=== PATIENT | female | born 1940 | race Caucasian/White ===

== ENCOUNTER 2016-04-16 08:51 | Outpatient (RCR) | payer MEDICARE, OTHER ==
--- OUTSIDE RECORDS SUMMARY | 2016-01-23 14:54 | XMS REPORT | Continuity of Care Document ---
Author Author [facility] Organization [facility] Address Unknown Phone Unavailable Care Team Providers Care Career Coordinator Name Role Phone GRACIELA MCGUIRE DO PCP Insurance Providers Payer Name Policy Number Subscriber Name Relationship [employer] Medicare [id number] Sharmila Silva 18 Self / Same As Patient [employer] [id number] Sharmila Silva 18 Self / Same As Patient Advance Directives Directive Response Recorded Date/Time Advance Directives No 07/29/13 10:30pm Health Care Power of Gymnastic Coach No 07/29/13 10:30pm Organ Donor No 07/29/13 10:30pm Problems No known problems or medical conditions. Medications Medication Dose Route Sig Days/Qty Instructions Order Date Discontinued Date Status Lisinopril 20 Mg PO DAILY 05/29/11 Active Levothyroxine Sodium (Levothroid) 75 Mcg PO DAILY 05/29/11 Active Metformin HCl (Glucophage) 1 Each PO TWICE A DAY WITH MEALS 05/29/11 Active Vitamin E 400 Unit PO DAILY 05/29/11 Active Acetaminophen/Hydrocodone Bitart 1 - 2 Ea PO Q4HR PRN 06/05/1110/22 Discontinued Omeprazole 40 Mg PO DAILY 06/05/11 10/22/12 Discontinued Cholecalciferol 1,000 Unit GT 10/22/12 Active Iron &Iron Asp Gly/Fa/Mv,Min38 1 Each PO 10/22/12 Active Dicyclomine Hcl 10 Mg PO 10/22/12 Active Apixaban 5 Mg PO TWICE A DAY 60 Qty 07/31/13 Active Diltiazem HCl 180 Mg PO DAILY 30 Qty 07/31/13 Active Social History Social History Problem Response Recorded Date/Time Alcohol Use Denies Use 07/29/2013 10:30pm Recreational Drug Use No 07/29/2013 10:30pm Recent Foreign Travel No 07/29/2013 10:30pm Recent Infectious Disease Exposure No 07/29/2013 10:30pm Hospitalization with Isolation Denies 07/31/2013 1:47pm Sexually Transmitted Disease No 07/29/2013 10:30pm HIV/AIDS No 07/29/2013 10:30pm Hospital Discharge Instructions No hospital discharge instructions. Plan of Care No plan of care. Functional Status No functional status results. Allergies, Adverse Reactions, Alerts Allergen Type Severity Reaction Status Last Updated indomethacin sodium Allergy Unknown HEAD ACHE, NIGHTMARES Active 07/29/13 indomethacin ([id number]) Allergy Unknown HEAD ACHE, NIGHTMARES Active 03/03 Immunizations No immunization records. Vital Signs No known vital signs results. Results No known relevant diagnostic tests, laboratory data and/or discharge summary. Procedures Procedure Status Date Provider(s) 48 hour Holter monitoring completed 07/20/14 ZORAN MCGUIRE 48 hour Holter monitoring completed 07/20/14 ZORAN MCGUIRE Encounters Encounter Location Date/Time Discharged Recurring Via [facility] 07/19/14 9:59am
[2016-01-23 15:29] LABS: BASOPHILS % (AUTO) 1 % (0-10); EOSINOPHILS # (AUTO) 0.4 10^3/uL (0.0-0.3); EOSINOPHILS % (AUTO) 7 % (0-10); LYMPHOCYTES # (AUTO) 1.6 X 10^3 (1.0-4.0); LYMPHOCYTES % (AUTO) 31 % (12-44); MEAN CORPUSCULAR HEMOGLOBIN 28 PG (25-34); MEAN CORPUSCULAR HGB CONC 33 G/DL (32-36); MEAN CORPUSCULAR VOLUME 87 FL (80-99); MEAN PLATELET VOLUME 10.6 FL (7.4-10.4); MONOCYTES # (AUTO) 0.4 X 10^3 (0.0-1.0); MONOCYTES % (AUTO) 7 % (0-12); NEUTROPHILS # (AUTO) 2.8 X 10^3 (1.8-7.8); NEUTROPHILS % (AUTO) 54 % (42-75); PLATELET COUNT 213 10^3/uL (130-400); RED BLOOD COUNT 4.03 10^6/uL (4.35-5.85); RED CELL DISTRIBUTION WIDTH 17.2 % (10.0-14.5); WHITE BLOOD COUNT 5.2 10^3/uL (4.3-11.0)
[2016-01-23 15:54] LABS: CALCIUM 9.1 MG/DL (8.5-10.1); CREATININE SERUM 1.04 MG/DL (0.60-1.30); MAGNESIUM 2.1 MG/DL (1.8-2.4); POTASSIUM 4.7 MMOL/L (3.6-5.0)
[2016-01-30 11:07] LABS: BASOPHILS # (AUTO) 0.1 10^3/uL (0.0-0.1); BASOPHILS % (AUTO) 2 % (0-10); EOSINOPHILS # (AUTO) 0.1 10^3/uL (0.0-0.3); EOSINOPHILS % (AUTO) 3 % (0-10); LYMPHOCYTES # (AUTO) 1.1 X 10^3 (1.0-4.0); LYMPHOCYTES % (AUTO) 28 % (12-44); MEAN CORPUSCULAR HEMOGLOBIN 29 PG (25-34); MEAN CORPUSCULAR HGB CONC 33 G/DL (32-36); MEAN CORPUSCULAR VOLUME 88 FL (80-99); MONOCYTES # (AUTO) 0.6 X 10^3 (0.0-1.0); MONOCYTES % (AUTO) 15 % (0-12); NEUTROPHILS % (AUTO) 52 % (42-75); PLATELET COUNT 140 10^3/uL (130-400); RED BLOOD COUNT 3.77 10^6/uL (4.35-5.85); RED CELL DISTRIBUTION WIDTH 18.6 % (10.0-14.5); WHITE BLOOD COUNT 3.8 10^3/uL (4.3-11.0)
[2016-01-30 11:28] LABS: ALANINE AMINOTRANSFERASE 15 U/L (0-55); ALBUMIN 3.8 G/DL (3.2-4.5); ANION GAP 10 MMOL/L (5-14); ASPARTATE AMINO TRANSFERASE 16 U/L (5-34); BILIRUBIN,TOTAL 0.5 MG/DL (0.1-1.0); BLOOD UREA NITROGEN 14 MG/DL (7-18); BUN/CREATININE RATIO 16; CARBON DIOXIDE 20 MMOL/L (21-32); CHLORIDE 107 MMOL/L (98-107); CREATININE SERUM 0.87 MG/DL (0.60-1.30); GFR ESTIMATED > 60; GLUCOSE 120 MG/DL (70-105); MAGNESIUM 2.1 MG/DL (1.8-2.4); POTASSIUM 3.8 MMOL/L (3.6-5.0); SODIUM 137 MMOL/L (135-145); TOTAL PROTEIN 6.6 G/DL (6.4-8.2)
[2016-01-30 11:41] LABS: BILIRUBIN,URINE NEGATIVE (NEGATIVE); KETONES,URINE NEGATIVE (NEGATIVE); LEUKOCYTE ESTERASE ,URINE 3+ (NEGATIVE); NITRITE,URINE NEGATIVE (NEGATIVE); PH,URINE 5 (5-9); PROTEIN,URINE 1+ (NEGATIVE); UROBILINOGEN,URINE NORMAL (NORMAL)
[2016-02-06 10:28] LABS: BASOPHILS % (AUTO) 1 % (0-10); EOSINOPHILS # (AUTO) 0.3 10^3/uL (0.0-0.3); EOSINOPHILS % (AUTO) 6 % (0-10); LYMPHOCYTES # (AUTO) 1.1 X 10^3 (1.0-4.0); LYMPHOCYTES % (AUTO) 21 % (12-44); MEAN CORPUSCULAR HEMOGLOBIN 29 PG (25-34); MEAN CORPUSCULAR HGB CONC 33 G/DL (32-36); MEAN CORPUSCULAR VOLUME 87 FL (80-99); MEAN PLATELET VOLUME 10.4 FL (7.4-10.4); MONOCYTES # (AUTO) 0.5 X 10^3 (0.0-1.0); MONOCYTES % (AUTO) 10 % (0-12); NEUTROPHILS # (AUTO) 3.4 X 10^3 (1.8-7.8); NEUTROPHILS % (AUTO) 63 % (42-75); PLATELET COUNT 196 10^3/uL (130-400); RED BLOOD COUNT 3.89 10^6/uL (4.35-5.85); RED CELL DISTRIBUTION WIDTH 18.6 % (10.0-14.5); WHITE BLOOD COUNT 5.4 10^3/uL (4.3-11.0)
[2016-02-06 11:14] LABS: CALCIUM 8.9 MG/DL (8.5-10.1); CREATININE SERUM 0.96 MG/DL (0.60-1.30); MAGNESIUM 2.1 MG/DL (1.8-2.4); POTASSIUM 3.9 MMOL/L (3.6-5.0)
[2016-02-20 13:13] LABS: BASOPHILS # (AUTO) 0.1 10^3/uL (0.0-0.1); BASOPHILS % (AUTO) 1 % (0-10); EOSINOPHILS # (AUTO) 0.2 10^3/uL (0.0-0.3); EOSINOPHILS % (AUTO) 3 % (0-10); LYMPHOCYTES # (AUTO) 1.6 X 10^3 (1.0-4.0); LYMPHOCYTES % (AUTO) 25 % (12-44); MEAN CORPUSCULAR HEMOGLOBIN 29 PG (25-34); MEAN CORPUSCULAR HGB CONC 34 G/DL (32-36); MEAN CORPUSCULAR VOLUME 86 FL (80-99); MEAN PLATELET VOLUME 9.7 FL (7.4-10.4); MONOCYTES # (AUTO) 0.8 X 10^3 (0.0-1.0); MONOCYTES % (AUTO) 12 % (0-12); NEUTROPHILS # (AUTO) 3.8 X 10^3 (1.8-7.8); NEUTROPHILS % (AUTO) 60 % (42-75); PLATELET COUNT 265 10^3/uL (130-400); RED BLOOD COUNT 4.02 10^6/uL (4.35-5.85); RED CELL DISTRIBUTION WIDTH 20.4 % (10.0-14.5); WHITE BLOOD COUNT 6.4 10^3/uL (4.3-11.0)
[2016-02-20 13:36] LABS: ALANINE AMINOTRANSFERASE 22 U/L (0-55); ALBUMIN 3.6 G/DL (3.2-4.5); ANION GAP 5 MMOL/L (5-14); ASPARTATE AMINO TRANSFERASE 25 U/L (5-34); BILIRUBIN,TOTAL 0.3 MG/DL (0.1-1.0); BLOOD UREA NITROGEN 14 MG/DL (7-18); BUN/CREATININE RATIO 16; CALCIUM 8.6 MG/DL (8.5-10.1); CARBON DIOXIDE 24 MMOL/L (21-32); CHLORIDE 107 MMOL/L (98-107); CREATININE SERUM 0.86 MG/DL (0.60-1.30); GFR ESTIMATED > 60; GLUCOSE 127 MG/DL (70-105); POTASSIUM 3.8 MMOL/L (3.6-5.0); SODIUM 136 MMOL/L (135-145); TOTAL PROTEIN 6.6 G/DL (6.4-8.2)
[2016-02-20 14:11] LABS: KETONES,URINE 1+ (NEGATIVE); LEUKOCYTE ESTERASE ,URINE 3+ (NEGATIVE); NITRITE,URINE NEGATIVE (NEGATIVE); PH,URINE 6 (5-9); PROTEIN,URINE 2+ (NEGATIVE); UROBILINOGEN,URINE 1 MG/DL (NORMAL)
[2016-02-20 14:19] LABS: BILIRUBIN,URINE 1+ (NEGATIVE)
[2016-02-28 14:55] LABS: BASOPHILS % (AUTO) 1 % (0-10); EOSINOPHILS # (AUTO) 0.1 10^3/uL (0.0-0.3); EOSINOPHILS % (AUTO) 2 % (0-10); LYMPHOCYTES # (AUTO) 1.1 X 10^3 (1.0-4.0); LYMPHOCYTES % (AUTO) 19 % (12-44); MEAN CORPUSCULAR HEMOGLOBIN 29 PG (25-34); MEAN CORPUSCULAR HGB CONC 33 G/DL (32-36); MEAN CORPUSCULAR VOLUME 89 FL (80-99); MEAN PLATELET VOLUME 9.9 FL (7.4-10.4); MONOCYTES # (AUTO) 0.3 X 10^3 (0.0-1.0); MONOCYTES % (AUTO) 5 % (0-12); NEUTROPHILS # (AUTO) 4.1 X 10^3 (1.8-7.8); NEUTROPHILS % (AUTO) 73 % (42-75); PLATELET COUNT 148 10^3/uL (130-400); RED BLOOD COUNT 3.77 10^6/uL (4.35-5.85); RED CELL DISTRIBUTION WIDTH 18.8 % (10.0-14.5); WHITE BLOOD COUNT 5.6 10^3/uL (4.3-11.0)
[2016-02-28 15:10] LABS: BILIRUBIN,URINE NEGATIVE (NEGATIVE); KETONES,URINE NEGATIVE (NEGATIVE); LEUKOCYTE ESTERASE ,URINE 3+ (NEGATIVE); NITRITE,URINE NEGATIVE (NEGATIVE); PH,URINE 6 (5-9); PROTEIN,URINE 2+ (NEGATIVE); UROBILINOGEN,URINE NORMAL (NORMAL)
[2016-02-28 15:29] LABS: ANION GAP 9 MMOL/L (5-14); BLOOD UREA NITROGEN 11 MG/DL (7-18); BUN/CREATININE RATIO 14; CARBON DIOXIDE 24 MMOL/L (21-32); CHLORIDE 104 MMOL/L (98-107); CREATININE SERUM 0.81 MG/DL (0.60-1.30); GFR ESTIMATED > 60; GLUCOSE 150 MG/DL (70-105); POTASSIUM 4.1 MMOL/L (3.6-5.0); SODIUM 137 MMOL/L (135-145)
[2016-02-28 15:31] LABS: WBC,URINE 25-50 /HPF
[2016-03-05 09:15] LABS: BASOPHILS # (AUTO) 0.1 10^3/uL (0.0-0.1); BASOPHILS % (AUTO) 2 % (0-10); EOSINOPHILS # (AUTO) 0.2 10^3/uL (0.0-0.3); EOSINOPHILS % (AUTO) 5 % (0-10); LYMPHOCYTES # (AUTO) 1.1 X 10^3 (1.0-4.0); LYMPHOCYTES % (AUTO) 33 % (12-44); MEAN CORPUSCULAR HEMOGLOBIN 31 PG (25-34); MEAN CORPUSCULAR HGB CONC 34 G/DL (32-36); MEAN CORPUSCULAR VOLUME 91 FL (80-99); MEAN PLATELET VOLUME 9.2 FL (7.4-10.4); MONOCYTES # (AUTO) 0.7 X 10^3 (0.0-1.0); MONOCYTES % (AUTO) 20 % (0-12); NEUTROPHILS # (AUTO) 1.4 X 10^3 (1.8-7.8); NEUTROPHILS % (AUTO) 41 % (42-75); PLATELET COUNT 193 10^3/uL (130-400); RED BLOOD COUNT 3.49 10^6/uL (4.35-5.85); RED CELL DISTRIBUTION WIDTH 19.6 % (10.0-14.5); WHITE BLOOD COUNT 3.4 10^3/uL (4.3-11.0)
[2016-03-05 09:41] LABS: PROTEIN/CREATININE RATIO 0.35
[2016-03-05 09:50] LABS: ALBUMIN 3.8 G/DL (3.2-4.5); BILIRUBIN,TOTAL 0.3 MG/DL (0.1-1.0); CALCIUM 9.1 MG/DL (8.5-10.1); CREATININE SERUM 1.04 MG/DL (0.60-1.30); POTASSIUM 3.8 MMOL/L (3.6-5.0); TOTAL PROTEIN 6.6 G/DL (6.4-8.2)
[2016-03-12 11:39] LABS: BASOPHILS # (AUTO) 0.1 10^3/uL (0.0-0.1); BASOPHILS % (AUTO) 1 % (0-10); EOSINOPHILS # (AUTO) 0.2 10^3/uL (0.0-0.3); EOSINOPHILS % (AUTO) 4 % (0-10); LYMPHOCYTES # (AUTO) 1.5 X 10^3 (1.0-4.0); LYMPHOCYTES % (AUTO) 31 % (12-44); MEAN CORPUSCULAR HEMOGLOBIN 30 PG (25-34); MEAN CORPUSCULAR HGB CONC 32 G/DL (32-36); MEAN CORPUSCULAR VOLUME 94 FL (80-99); MEAN PLATELET VOLUME 9.6 FL (7.4-10.4); MONOCYTES # (AUTO) 0.7 X 10^3 (0.0-1.0); MONOCYTES % (AUTO) 15 % (0-12); NEUTROPHILS # (AUTO) 2.4 X 10^3 (1.8-7.8); NEUTROPHILS % (AUTO) 49 % (42-75); PLATELET COUNT 294 10^3/uL (130-400); RED BLOOD COUNT 3.61 10^6/uL (4.35-5.85); RED CELL DISTRIBUTION WIDTH 20.3 % (10.0-14.5); WHITE BLOOD COUNT 4.8 10^3/uL (4.3-11.0)
[2016-03-12 12:16] LABS: CALCIUM 9.5 MG/DL (8.5-10.1); CREATININE SERUM 1.02 MG/DL (0.60-1.30); MAGNESIUM 2.2 MG/DL (1.8-2.4); POTASSIUM 4.3 MMOL/L (3.6-5.0)
[2016-03-19 13:07] LABS: BASOPHILS # (AUTO) 0.1 10^3/uL (0.0-0.1); BASOPHILS % (AUTO) 1 % (0-10); EOSINOPHILS # (AUTO) 0.1 10^3/uL (0.0-0.3); EOSINOPHILS % (AUTO) 2 % (0-10); LYMPHOCYTES # (AUTO) 1.7 X 10^3 (1.0-4.0); LYMPHOCYTES % (AUTO) 26 % (12-44); MEAN CORPUSCULAR HEMOGLOBIN 31 PG (25-34); MEAN CORPUSCULAR HGB CONC 32 G/DL (32-36); MEAN CORPUSCULAR VOLUME 96 FL (80-99); MEAN PLATELET VOLUME 10.4 FL (7.4-10.4); MONOCYTES # (AUTO) 0.6 X 10^3 (0.0-1.0); MONOCYTES % (AUTO) 10 % (0-12); NEUTROPHILS # (AUTO) 4.1 X 10^3 (1.8-7.8); NEUTROPHILS % (AUTO) 62 % (42-75); PLATELET COUNT 187 10^3/uL (130-400); RED BLOOD COUNT 3.57 10^6/uL (4.35-5.85); WHITE BLOOD COUNT 6.6 10^3/uL (4.3-11.0)
[2016-03-19 13:35] LABS: ALANINE AMINOTRANSFERASE 20 U/L (0-55); ALBUMIN 3.8 G/DL (3.2-4.5); ANION GAP 9 MMOL/L (5-14); ASPARTATE AMINO TRANSFERASE 25 U/L (5-34); BILIRUBIN,TOTAL 0.4 MG/DL (0.1-1.0); BLOOD UREA NITROGEN 16 MG/DL (7-18); BUN/CREATININE RATIO 19; CALCIUM 9.1 MG/DL (8.5-10.1); CARBON DIOXIDE 25 MMOL/L (21-32); CHLORIDE 104 MMOL/L (98-107); CREATININE SERUM 0.84 MG/DL (0.60-1.30); GFR ESTIMATED > 60; GLUCOSE 120 MG/DL (70-105); MAGNESIUM 2.1 MG/DL (1.8-2.4); POTASSIUM 3.9 MMOL/L (3.6-5.0); SODIUM 138 MMOL/L (135-145); TOTAL PROTEIN 6.6 G/DL (6.4-8.2)
[2016-03-26 12:24] LABS: BASOPHILS % (AUTO) 1 % (0-10); EOSINOPHILS # (AUTO) 0.2 10^3/uL (0.0-0.3); EOSINOPHILS % (AUTO) 4 % (0-10); LYMPHOCYTES # (AUTO) 1.5 X 10^3 (1.0-4.0); LYMPHOCYTES % (AUTO) 32 % (12-44); MEAN CORPUSCULAR HEMOGLOBIN 31 PG (25-34); MEAN CORPUSCULAR HGB CONC 32 G/DL (32-36); MEAN CORPUSCULAR VOLUME 97 FL (80-99); MEAN PLATELET VOLUME 10.7 FL (7.4-10.4); MONOCYTES # (AUTO) 0.4 X 10^3 (0.0-1.0); MONOCYTES % (AUTO) 8 % (0-12); NEUTROPHILS # (AUTO) 2.6 X 10^3 (1.8-7.8); NEUTROPHILS % (AUTO) 55 % (42-75); PLATELET COUNT 205 10^3/uL (130-400); RED BLOOD COUNT 3.51 10^6/uL (4.35-5.85); RED CELL DISTRIBUTION WIDTH 18.5 % (10.0-14.5); WHITE BLOOD COUNT 4.8 10^3/uL (4.3-11.0)
[2016-03-26 12:52] LABS: ANION GAP 7 MMOL/L (5-14); BLOOD UREA NITROGEN 21 MG/DL (7-18); BUN/CREATININE RATIO 25; CALCIUM 9.2 MG/DL (8.5-10.1); CARBON DIOXIDE 27 MMOL/L (21-32); CHLORIDE 105 MMOL/L (98-107); CREATININE SERUM 0.85 MG/DL (0.60-1.30); GFR ESTIMATED > 60; GLUCOSE 132 MG/DL (70-105); POTASSIUM 4.3 MMOL/L (3.6-5.0); SODIUM 139 MMOL/L (135-145)
[2016-04-02 11:13] LABS: BASOPHILS % (AUTO) 1 % (0-10); EOSINOPHILS # (AUTO) 0.2 10^3/uL (0.0-0.3); EOSINOPHILS % (AUTO) 4 % (0-10); LYMPHOCYTES # (AUTO) 1.4 X 10^3 (1.0-4.0); LYMPHOCYTES % (AUTO) 29 % (12-44); MEAN CORPUSCULAR HEMOGLOBIN 32 PG (25-34); MEAN CORPUSCULAR HGB CONC 33 G/DL (32-36); MEAN CORPUSCULAR VOLUME 98 FL (80-99); MEAN PLATELET VOLUME 10.5 FL (7.4-10.4); MONOCYTES # (AUTO) 0.5 X 10^3 (0.0-1.0); MONOCYTES % (AUTO) 11 % (0-12); NEUTROPHILS # (AUTO) 2.7 X 10^3 (1.8-7.8); NEUTROPHILS % (AUTO) 55 % (42-75); PLATELET COUNT 200 10^3/uL (130-400); RED BLOOD COUNT 3.57 10^6/uL (4.35-5.85); RED CELL DISTRIBUTION WIDTH 18.4 % (10.0-14.5); WHITE BLOOD COUNT 4.8 10^3/uL (4.3-11.0)
[2016-04-02 11:35] LABS: ALANINE AMINOTRANSFERASE 13 U/L (0-55); ANION GAP 11 MMOL/L (5-14); ASPARTATE AMINO TRANSFERASE 22 U/L (5-34); BILIRUBIN,TOTAL 0.3 MG/DL (0.1-1.0); BLOOD UREA NITROGEN 18 MG/DL (7-18); BUN/CREATININE RATIO 21; CALCIUM 8.9 MG/DL (8.5-10.1); CARBON DIOXIDE 21 MMOL/L (21-32); CHLORIDE 106 MMOL/L (98-107); CREATININE SERUM 0.86 MG/DL (0.60-1.30); GFR ESTIMATED > 60; GLUCOSE 166 MG/DL (70-105); POTASSIUM 3.6 MMOL/L (3.6-5.0); SODIUM 138 MMOL/L (135-145)
[2016-04-09 14:38] LABS: BASOPHILS % (AUTO) 1 % (0-10); EOSINOPHILS # (AUTO) 0.2 10^3/uL (0.0-0.3); EOSINOPHILS % (AUTO) 4 % (0-10); LYMPHOCYTES # (AUTO) 1.7 X 10^3 (1.0-4.0); LYMPHOCYTES % (AUTO) 32 % (12-44); MEAN CORPUSCULAR HEMOGLOBIN 33 PG (25-34); MEAN CORPUSCULAR HGB CONC 33 G/DL (32-36); MEAN CORPUSCULAR VOLUME 99 FL (80-99); MONOCYTES # (AUTO) 0.7 X 10^3 (0.0-1.0); MONOCYTES % (AUTO) 12 % (0-12); NEUTROPHILS # (AUTO) 2.9 X 10^3 (1.8-7.8); NEUTROPHILS % (AUTO) 52 % (42-75); PLATELET COUNT 263 10^3/uL (130-400); RED BLOOD COUNT 3.44 10^6/uL (4.35-5.85); RED CELL DISTRIBUTION WIDTH 17.2 % (10.0-14.5); WHITE BLOOD COUNT 5.5 10^3/uL (4.3-11.0)
[2016-04-09 15:44] LABS: ANION GAP 7 MMOL/L (5-14); BLOOD UREA NITROGEN 16 MG/DL (7-18); BUN/CREATININE RATIO 19; CALCIUM 9.2 MG/DL (8.5-10.1); CARBON DIOXIDE 31 MMOL/L (21-32); CHLORIDE 103 MMOL/L (98-107); CREATININE SERUM 0.86 MG/DL (0.60-1.30); GFR ESTIMATED > 60; GLUCOSE 117 MG/DL (70-105); MAGNESIUM 2.1 MG/DL (1.8-2.4); POTASSIUM 4.6 MMOL/L (3.6-5.0); SODIUM 141 MMOL/L (135-145)
[~2016-04-16] VITALS: Ht 165.1 cm; Wt 83.5 kg
[~2016-04-16 08:51] MED LIST: APIX5TAB2 PO; ASPI-983 PO; ASPI-999 PO; BEVACIZUMAB INJECTION 400 MG in NS (IVPB) CANCER CENTER 100 ML IV SCH; BEVACIZUMAB IV SCH; BISA-65 PO; CHOL10002 GT; CHOL2000 PO; D5W 500 ML IV (CANCER CTR) 500 ML IV SCH; DICY10CA12 PO; DILT60TA PO; DLT60T PO; E400C PO; FERR-74 PO; FERR-84 PO; FERR159T2 PO; FLUOROURACIL 600 MG in SYRINGE-IVPB 1 SYRINGE IV SCH; FLUT16SP22 NS; FLUT9.9S NS; FOSAPREPITANT 150 MG/NS 150 MG IVPB (CANCER CTR) IV PRN; FURO-124 PO; HYDR-3583 PO; IRON1TAB94 PO; LEUCOVORIN CALCIUM 400 MG in D5W 250 ML IVPB (CANCER CTR) 250 ML IV SCH; LEUCOVORIN CALCIUM 600 MG in D5W 250 ML IVPB (CANCER CTR) 250 ML IV SCH; LEVO75TA6 PO; LISI20TA PO; LORA0.5T PO; LORA10TA7 PO; LORA1TAB PO; LVT.025T PO; MAGN400T6 PO; METO-272 PO; METR500T21 PO; MTF500T PO; NF-MAG64T PO; NS IV 1000 ML (CANCER CTR) 1,000 ML ONE; NS IV SCH; OMEP40CA36 PO; ONDA4TAB11 PO; OXALIPLATIN 100 MG, OXALIPLATIN (GENERIC) 40 MG in D5W 250 ML IVPB (CANCER CTR) 250 ML IV SCH; OXYC-471 PO; PALONOSETRON 0.25 MG, DEXAMETHASONE 10 MG/NS 50 ML IVPB IV PRN; PANT40TA3 PO; POTA99TA17 PO; SIMV10TA3 PO; TRAM50TA2 PO; UBID100C44 PO; VITA400C58 PO
[2016-04-16 09:17] LABS: BASOPHILS % (AUTO) 0 % (0-10); EOSINOPHILS # (AUTO) 0.2 10^3/uL (0.0-0.3); EOSINOPHILS % (AUTO) 4 % (0-10); LYMPHOCYTES # (AUTO) 1.4 X 10^3 (1.0-4.0); LYMPHOCYTES % (AUTO) 23 % (12-44); MEAN CORPUSCULAR HEMOGLOBIN 33 PG (25-34); MEAN CORPUSCULAR HGB CONC 33 G/DL (32-36); MEAN CORPUSCULAR VOLUME 99 FL (80-99); MEAN PLATELET VOLUME 10.4 FL (7.4-10.4); MONOCYTES # (AUTO) 0.6 X 10^3 (0.0-1.0); MONOCYTES % (AUTO) 11 % (0-12); NEUTROPHILS # (AUTO) 3.6 X 10^3 (1.8-7.8); NEUTROPHILS % (AUTO) 62 % (42-75); PLATELET COUNT 148 10^3/uL (130-400); RED BLOOD COUNT 3.46 10^6/uL (4.35-5.85); WHITE BLOOD COUNT 5.8 10^3/uL (4.3-11.0)
[2016-04-16 09:41] LABS: ALANINE AMINOTRANSFERASE 13 U/L (0-55); ALBUMIN 3.9 G/DL (3.2-4.5); ANION GAP 9 MMOL/L (5-14); ASPARTATE AMINO TRANSFERASE 20 U/L (5-34); BILIRUBIN,TOTAL 0.3 MG/DL (0.1-1.0); BLOOD UREA NITROGEN 17 MG/DL (7-18); BUN/CREATININE RATIO 19; CALCIUM 8.8 MG/DL (8.5-10.1); CARBON DIOXIDE 24 MMOL/L (21-32); CHLORIDE 104 MMOL/L (98-107); GFR ESTIMATED > 60; GLUCOSE 163 MG/DL (70-105); POTASSIUM 3.5 MMOL/L (3.6-5.0); SODIUM 137 MMOL/L (135-145); TOTAL PROTEIN 6.8 G/DL (6.4-8.2)
[2016-04-16 10:27] LABS: PROTEIN/CREATININE RATIO 0.08
== END 2016-04-22 | disposition home or self-care (01) ==
LOC: ONC 08:51
PROVIDERS: ATTEND Internal Medicine Hematology & Oncology
DX: Z51.11 Encounter for antineoplastic chemotherapy (principal); C18.4 Malignant neoplasm of transverse colon; C77.1 Secondary and unspecified malignant neoplasm of intrathoracic lymph nodes; C77.3 Secondary and unspecified malignant neoplasm of axilla and upper limb lymph nodes; E03.9 Hypothyroidism, unspecified; R80.9 Proteinuria, unspecified; R82.90 Unspecified abnormal findings in urine; A04.7 Enterocolitis due to Clostridium difficile; K12.30 Oral mucositis (ulcerative), unspecified; Z79.899 Other long term (current) drug therapy
CPT/HCPCS: 36415; 36591; 80048; 80053; 81000; 81002; 82378; 82570; 83735; 84156; 85025; 87077; 87088; 87186; 87324; 87493; 96360; 96361; 96367; 96368; 96375; 96411; 96413; 96521; 99213

== ENCOUNTER → 2016-06-18 | Outpatient (CLI) | payer MEDICARE, OTHER ==
[~2016-06-18] MED LIST changes: +BARIUM SUSPENSION 2.1% (VANILLA SILQ) 450 ML PO ONE; -BEVACIZUMAB INJECTION 400 MG in NS (IVPB) CANCER CENTER 100 ML IV SCH; -BEVACIZUMAB IV SCH; +CATHETER FLUSH 10 ML SYR IV PRN; -D5W 500 ML IV (CANCER CTR) 500 ML IV SCH; -FLUOROURACIL 600 MG in SYRINGE-IVPB 1 SYRINGE IV SCH; -FOSAPREPITANT 150 MG/NS 150 MG IVPB (CANCER CTR) IV PRN; +IOHEXOL 350 MG/ML 100 ML (OMNIPAQUE 350) VIAL IV ONE; -LEUCOVORIN CALCIUM 400 MG in D5W 250 ML IVPB (CANCER CTR) 250 ML IV SCH; -LEUCOVORIN CALCIUM 600 MG in D5W 250 ML IVPB (CANCER CTR) 250 ML IV SCH; +NS 100 ML (IVPB) BAG IV ONE; -NS IV 1000 ML (CANCER CTR) 1,000 ML ONE; -NS IV SCH; -OXALIPLATIN 100 MG, OXALIPLATIN (GENERIC) 40 MG in D5W 250 ML IVPB (CANCER CTR) 250 ML IV SCH; -PALONOSETRON 0.25 MG, DEXAMETHASONE 10 MG/NS 50 ML IVPB IV PRN
--- OUTSIDE RECORDS SUMMARY | 2016-06-18 09:34 | XMS REPORT | Continuity of Care Document ---
Author Author [facility] Organization [facility] Address Unknown Phone Unavailable Care Team Providers Care Vice Chairman Name Role Phone GRACIELA MCGUIRE DO PCP Insurance Providers Payer Name Policy Number Subscriber Name Relationship [employer]ps Medicare [id number] Sharmila Silva 18 Self / Same As Patient [employer] [id number] Sharmila Silva 18 Self / Same As Patient Advance Directives Directive Response Recorded Date/Time Advance Directives No 07/29/13 10:30pm Health Care Power of Merchant Mariner No 07/29/13 10:30pm Organ Donor No 07/29/13 [...] Unknown HEAD ACHE, NIGHTMARES Active 07/29/13 indomethacin ([id number]) Allergy Unknown HEAD ACHE, NIGHTMARES Active 03/03 Immunizations No immunization records. Vital Signs No known vital signs results. Results No known relevant diagnostic tests, laboratory data and/or discharge summary. Procedures Procedure Status Date Provider(s) 48 hour Holter monitoring completed 07/20/14 ZORAN MCGUIRE 48 hour Holter monitoring completed 07/20/14 ZORAN MCGUIRE Encounters Encounter Location Date/Time Discharged Recurring Via [facility] 07/19/14 9:59am
--- NOTE | 2016-06-18 12:25 | Diagnostic Imaging Report ---
PROCEDURE: CT chest, abdomen, and pelvis with contrast. TECHNIQUE: Multiple contiguous axial images were obtained through the chest, abdomen, and pelvis after the administration of intravenous contrast. INDICATION: Colon cancer. Study compared with abdominal/ pelvic CT 10/29/2015. No previous chest for direct comparison. CT chest: No lung mass or suspicious pulmonary nodule is present. There is no axillary, hilar, or mediastinal lymphadenopathy. There is a small hiatal hernia with no pleural or pericardial effusion. No acute soft tissue or osseous chest wall disease. Central catheter has its tip at the lower SVC. The aorta is patent and nonaneurysmal. CT abdomen/ pelvis: Previous features of small bowel obstruction have resolved in the interim. On the previous CT there was a focal area of abnormal induration of the mesentery just posterior to an anastomosis in the right lower quadrant. That localized density has resolved. No liver mass. The gallbladder absent. No pathological biliary ductal dilatation. The pancreas unremarkable. Nonfocal spleen is within normal limits of size. The adrenals are negative. The kidneys are unobstructed. Previous pelvic free fluid has resolved. There is some noninflamed diverticulosis at the sigmoid. There is no abdominal, pelvic, mesenteric, or retroperitoneal lymphadenopathy. The osseous structures unremarkable. IMPRESSION: There were no findings of metastatic disease within the chest, abdomen, or pelvis; and there is no acute pathology or adverse change. We note interval resolution of previous small bowel obstruction, resolution of previous pelvic free fluid, and resolution of previous perianastomotic zone of soft tissue induration of the mesentery. No adverse development or acute finding. Dictated by: Dictated on workstation # [id number]
== END ==
LOC: RAD 09:30
PROVIDERS: ATTEND Nurse Practitioner Adult Health
DX: C18.4 Malignant neoplasm of transverse colon (principal); C77.8 Secondary and unspecified malignant neoplasm of lymph nodes of multiple regions
CPT/HCPCS: 71260; 74177

== ENCOUNTER 2016-06-25 09:23 | Outpatient (RCR) | payer MEDICARE, OTHER ==
--- OUTSIDE RECORDS SUMMARY | 2016-04-23 13:04 | XMS REPORT | Continuity of Care Document ---
Author Author [facility] Organization [facility] Address Unknown Phone Unavailable Care Team Providers Care Commercial Print Salesman Name Role Phone GRACIELA MCGUIRE DO PCP Insurance Providers Payer Name Policy Number Subscriber Name Relationship [employer]ps [employer] [id number] Sharmila Silva 18 Self / Same As Patient [employer] [id number] Sharmila Silva 18 Self / Same As Patient Advance Directives Directive Response Recorded Date/Time Advance Directives No 07/29/13 10:30pm Health Care Power of Scheduler Conveyor No 07/29/13 10:30pm Organ Donor No 07/29/13 [...] Unknown HEAD ACHE, NIGHTMARES Active 07/29/13 indomethacin ([id number]) Allergy Unknown HEAD ACHE, NIGHTMARES Active 03/03 Immunizations No immunization records. Vital Signs No known vital signs results. Results No known relevant diagnostic tests, laboratory data and/or discharge summary. Procedures Procedure Status Date Provider(s) 48 hour Holter monitoring completed 07/20/14 ZORAN MCGUIRE 48 hour Holter monitoring completed 07/20/14 ZORAN MCGUIRE Encounters Encounter Location Date/Time Discharged Recurring Via [facility] 07/19/14 9:59am
[2016-04-23 13:24] LABS: BASOPHILS % (AUTO) 1 % (0-10); EOSINOPHILS # (AUTO) 0.1 10^3/uL (0.0-0.3); EOSINOPHILS % (AUTO) 3 % (0-10); LYMPHOCYTES # (AUTO) 1.5 X 10^3 (1.0-4.0); LYMPHOCYTES % (AUTO) 32 % (12-44); MEAN CORPUSCULAR HEMOGLOBIN 32 PG (25-34); MEAN CORPUSCULAR HGB CONC 32 G/DL (32-36); MEAN CORPUSCULAR VOLUME 100 FL (80-99); MEAN PLATELET VOLUME 10.3 FL (7.4-10.4); MONOCYTES # (AUTO) 0.5 X 10^3 (0.0-1.0); MONOCYTES % (AUTO) 12 % (0-12); NEUTROPHILS # (AUTO) 2.4 X 10^3 (1.8-7.8); NEUTROPHILS % (AUTO) 52 % (42-75); PLATELET COUNT 186 10^3/uL (130-400); RED BLOOD COUNT 3.51 10^6/uL (4.35-5.85); RED CELL DISTRIBUTION WIDTH 15.9 % (10.0-14.5); WHITE BLOOD COUNT 4.6 10^3/uL (4.3-11.0)
[2016-04-23 13:46] LABS: CALCIUM 9.5 MG/DL (8.5-10.1); CREATININE SERUM 0.93 MG/DL (0.60-1.30); MAGNESIUM 1.9 MG/DL (1.8-2.4); POTASSIUM 4.4 MMOL/L (3.6-5.0)
[2016-04-30 13:05] LABS: BASOPHILS % (AUTO) 1 % (0-10); EOSINOPHILS # (AUTO) 0.2 10^3/uL (0.0-0.3); EOSINOPHILS % (AUTO) 4 % (0-10); LYMPHOCYTES # (AUTO) 1.5 X 10^3 (1.0-4.0); LYMPHOCYTES % (AUTO) 28 % (12-44); MEAN CORPUSCULAR HEMOGLOBIN 32 PG (25-34); MEAN CORPUSCULAR HGB CONC 33 G/DL (32-36); MEAN CORPUSCULAR VOLUME 100 FL (80-99); MEAN PLATELET VOLUME 10.1 FL (7.4-10.4); MONOCYTES # (AUTO) 0.6 X 10^3 (0.0-1.0); MONOCYTES % (AUTO) 13 % (0-12); NEUTROPHILS # (AUTO) 2.8 X 10^3 (1.8-7.8); NEUTROPHILS % (AUTO) 55 % (42-75); PLATELET COUNT 150 10^3/uL (130-400); RED BLOOD COUNT 3.43 10^6/uL (4.35-5.85); RED CELL DISTRIBUTION WIDTH 15.8 % (10.0-14.5); WHITE BLOOD COUNT 5.1 10^3/uL (4.3-11.0)
[2016-04-30 13:30] LABS: ALANINE AMINOTRANSFERASE 14 U/L (0-55); ANION GAP 10 MMOL/L (5-14); ASPARTATE AMINO TRANSFERASE 20 U/L (5-34); BILIRUBIN,TOTAL 0.4 MG/DL (0.1-1.0); BLOOD UREA NITROGEN 19 MG/DL (7-18); BUN/CREATININE RATIO 22; CALCIUM 9.1 MG/DL (8.5-10.1); CARBON DIOXIDE 24 MMOL/L (21-32); CHLORIDE 104 MMOL/L (98-107); CREATININE SERUM 0.88 MG/DL (0.60-1.30); GFR ESTIMATED > 60; GLUCOSE 109 MG/DL (70-105); POTASSIUM 4.1 MMOL/L (3.6-5.0); SODIUM 138 MMOL/L (135-145); TOTAL PROTEIN 7.2 G/DL (6.4-8.2)
[2016-05-07 10:26] LABS: BASOPHILS % (AUTO) 1 % (0-10); EOSINOPHILS # (AUTO) 0.1 10^3/uL (0.0-0.3); EOSINOPHILS % (AUTO) 2 % (0-10); LYMPHOCYTES # (AUTO) 1.6 X 10^3 (1.0-4.0); LYMPHOCYTES % (AUTO) 30 % (12-44); MEAN CORPUSCULAR HEMOGLOBIN 33 PG (25-34); MEAN CORPUSCULAR HGB CONC 33 G/DL (32-36); MEAN CORPUSCULAR VOLUME 100 FL (80-99); MEAN PLATELET VOLUME 9.7 FL (7.4-10.4); MONOCYTES # (AUTO) 0.7 X 10^3 (0.0-1.0); MONOCYTES % (AUTO) 13 % (0-12); NEUTROPHILS # (AUTO) 2.9 X 10^3 (1.8-7.8); NEUTROPHILS % (AUTO) 55 % (42-75); PLATELET COUNT 185 10^3/uL (130-400); RED CELL DISTRIBUTION WIDTH 15.1 % (10.0-14.5); WHITE BLOOD COUNT 5.3 10^3/uL (4.3-11.0)
[2016-05-07 11:19] LABS: CALCIUM 9.6 MG/DL (8.5-10.1); POTASSIUM 4.7 MMOL/L (3.6-5.0)
[2016-05-07 11:35] LABS: CREATININE SERUM 1.2 MG/DL (0.60-1.30)
[2016-05-14 09:05] LABS: BASOPHILS % (AUTO) 0 % (0-10); EOSINOPHILS # (AUTO) 0.2 10^3/uL (0.0-0.3); EOSINOPHILS % (AUTO) 3 % (0-10); LYMPHOCYTES # (AUTO) 1.2 X 10^3 (1.0-4.0); LYMPHOCYTES % (AUTO) 26 % (12-44); MEAN CORPUSCULAR HEMOGLOBIN 33 PG (25-34); MEAN CORPUSCULAR HGB CONC 33 G/DL (32-36); MEAN CORPUSCULAR VOLUME 100 FL (80-99); MEAN PLATELET VOLUME 9.5 FL (7.4-10.4); MONOCYTES # (AUTO) 0.6 X 10^3 (0.0-1.0); MONOCYTES % (AUTO) 12 % (0-12); NEUTROPHILS # (AUTO) 2.8 X 10^3 (1.8-7.8); NEUTROPHILS % (AUTO) 59 % (42-75); PLATELET COUNT 153 10^3/uL (130-400); RED BLOOD COUNT 3.42 10^6/uL (4.35-5.85); RED CELL DISTRIBUTION WIDTH 15.5 % (10.0-14.5); WHITE BLOOD COUNT 4.8 10^3/uL (4.3-11.0)
[2016-05-14 09:32] LABS: ALANINE AMINOTRANSFERASE 16 U/L (0-55); ANION GAP 11 MMOL/L (5-14); ASPARTATE AMINO TRANSFERASE 20 U/L (5-34); BILIRUBIN,TOTAL 0.3 MG/DL (0.1-1.0); BLOOD UREA NITROGEN 15 MG/DL (7-18); BUN/CREATININE RATIO 17; CALCIUM 8.9 MG/DL (8.5-10.1); CARBON DIOXIDE 22 MMOL/L (21-32); CHLORIDE 106 MMOL/L (98-107); CREATININE SERUM 0.88 MG/DL (0.60-1.30); GFR ESTIMATED > 60; GLUCOSE 124 MG/DL (70-105); MAGNESIUM 1.9 MG/DL (1.8-2.4); POTASSIUM 3.6 MMOL/L (3.6-5.0); SODIUM 139 MMOL/L (135-145); TOTAL PROTEIN 6.8 G/DL (6.4-8.2)
[2016-05-22 13:15] LABS: BASOPHILS % (AUTO) 0 % (0-10); EOSINOPHILS # (AUTO) 0.1 10^3/uL (0.0-0.3); EOSINOPHILS % (AUTO) 1 % (0-10); LYMPHOCYTES # (AUTO) 1.1 X 10^3 (1.0-4.0); LYMPHOCYTES % (AUTO) 17 % (12-44); MEAN CORPUSCULAR HEMOGLOBIN 33 PG (25-34); MEAN CORPUSCULAR HGB CONC 33 G/DL (32-36); MEAN CORPUSCULAR VOLUME 100 FL (80-99); MEAN PLATELET VOLUME 9.4 FL (7.4-10.4); MONOCYTES # (AUTO) 0.9 X 10^3 (0.0-1.0); MONOCYTES % (AUTO) 14 % (0-12); NEUTROPHILS # (AUTO) 4.4 X 10^3 (1.8-7.8); NEUTROPHILS % (AUTO) 67 % (42-75); PLATELET COUNT 218 10^3/uL (130-400); RED BLOOD COUNT 3.59 10^6/uL (4.35-5.85); RED CELL DISTRIBUTION WIDTH 15.3 % (10.0-14.5); WHITE BLOOD COUNT 6.5 10^3/uL (4.3-11.0)
[2016-05-22 13:39] LABS: CALCIUM 9.3 MG/DL (8.5-10.1); CREATININE SERUM 0.97 MG/DL (0.60-1.30); MAGNESIUM 1.9 MG/DL (1.8-2.4); POTASSIUM 4.2 MMOL/L (3.6-5.0)
[2016-05-28 09:51] LABS: BASOPHILS % (AUTO) 1 % (0-10); EOSINOPHILS # (AUTO) 0.1 10^3/uL (0.0-0.3); EOSINOPHILS % (AUTO) 3 % (0-10); LYMPHOCYTES # (AUTO) 1.3 X 10^3 (1.0-4.0); LYMPHOCYTES % (AUTO) 33 % (12-44); MEAN CORPUSCULAR HEMOGLOBIN 33 PG (25-34); MEAN CORPUSCULAR HGB CONC 33 G/DL (32-36); MEAN CORPUSCULAR VOLUME 100 FL (80-99); MEAN PLATELET VOLUME 9.4 FL (7.4-10.4); MONOCYTES # (AUTO) 0.5 X 10^3 (0.0-1.0); MONOCYTES % (AUTO) 14 % (0-12); NEUTROPHILS % (AUTO) 49 % (42-75); PLATELET COUNT 243 10^3/uL (130-400); RED BLOOD COUNT 3.49 10^6/uL (4.35-5.85); RED CELL DISTRIBUTION WIDTH 14.9 % (10.0-14.5)
[2016-05-28 10:23] LABS: ALANINE AMINOTRANSFERASE 21 U/L (0-55); ALBUMIN 3.9 G/DL (3.2-4.5); ANION GAP 11 MMOL/L (5-14); ASPARTATE AMINO TRANSFERASE 24 U/L (5-34); BILIRUBIN,TOTAL 0.3 MG/DL (0.1-1.0); BLOOD UREA NITROGEN 8 MG/DL (7-18); BUN/CREATININE RATIO 9; CALCIUM 9.1 MG/DL (8.5-10.1); CARBON DIOXIDE 22 MMOL/L (21-32); CHLORIDE 106 MMOL/L (98-107); CREATININE SERUM 0.89 MG/DL (0.60-1.30); GFR ESTIMATED > 60; GLUCOSE 124 MG/DL (70-105); SODIUM 139 MMOL/L (135-145); TOTAL PROTEIN 7.2 G/DL (6.4-8.2)
[2016-06-04 15:01] LABS: BASOPHILS # (AUTO) 0.1 10^3/uL (0.0-0.1); BASOPHILS % (AUTO) 1 % (0-10); EOSINOPHILS # (AUTO) 0.1 10^3/uL (0.0-0.3); EOSINOPHILS % (AUTO) 3 % (0-10); LYMPHOCYTES # (AUTO) 1.9 X 10^3 (1.0-4.0); LYMPHOCYTES % (AUTO) 36 % (12-44); MEAN CORPUSCULAR HEMOGLOBIN 34 PG (25-34); MEAN CORPUSCULAR HGB CONC 33 G/DL (32-36); MEAN CORPUSCULAR VOLUME 102 FL (80-99); MEAN PLATELET VOLUME 9.5 FL (7.4-10.4); MONOCYTES # (AUTO) 0.5 X 10^3 (0.0-1.0); MONOCYTES % (AUTO) 10 % (0-12); NEUTROPHILS # (AUTO) 2.7 X 10^3 (1.8-7.8); NEUTROPHILS % (AUTO) 50 % (42-75); PLATELET COUNT 261 10^3/uL (130-400); RED BLOOD COUNT 3.37 10^6/uL (4.35-5.85); RED CELL DISTRIBUTION WIDTH 14.9 % (10.0-14.5); WHITE BLOOD COUNT 5.4 10^3/uL (4.3-11.0)
[2016-06-04 15:34] LABS: CALCIUM 8.9 MG/DL (8.5-10.1); CREATININE SERUM 1.16 MG/DL (0.60-1.30); MAGNESIUM 2.1 MG/DL (1.8-2.4); POTASSIUM 6.2 MMOL/L (3.6-5.0)
[2016-06-11 09:52] LABS: BASOPHILS # (AUTO) 0.1 10^3/uL (0.0-0.1); BASOPHILS % (AUTO) 1 % (0-10); EOSINOPHILS # (AUTO) 0.2 10^3/uL (0.0-0.3); EOSINOPHILS % (AUTO) 3 % (0-10); LYMPHOCYTES # (AUTO) 1.2 X 10^3 (1.0-4.0); LYMPHOCYTES % (AUTO) 23 % (12-44); MEAN CORPUSCULAR HEMOGLOBIN 33 PG (25-34); MEAN CORPUSCULAR HGB CONC 32 G/DL (32-36); MEAN CORPUSCULAR VOLUME 101 FL (80-99); MEAN PLATELET VOLUME 10.1 FL (7.4-10.4); MONOCYTES # (AUTO) 0.6 X 10^3 (0.0-1.0); MONOCYTES % (AUTO) 12 % (0-12); NEUTROPHILS # (AUTO) 3.3 X 10^3 (1.8-7.8); NEUTROPHILS % (AUTO) 61 % (42-75); PLATELET COUNT 151 10^3/uL (130-400); RED BLOOD COUNT 3.47 10^6/uL (4.35-5.85); RED CELL DISTRIBUTION WIDTH 15.4 % (10.0-14.5); WHITE BLOOD COUNT 5.4 10^3/uL (4.3-11.0)
[2016-06-11 10:17] LABS: ALANINE AMINOTRANSFERASE 14 U/L (0-55); ALBUMIN 3.9 G/DL (3.2-4.5); ANION GAP 8 MMOL/L (5-14); ASPARTATE AMINO TRANSFERASE 22 U/L (5-34); BILIRUBIN,TOTAL 0.3 MG/DL (0.1-1.0); BLOOD UREA NITROGEN 13 MG/DL (7-18); BUN/CREATININE RATIO 15; CARBON DIOXIDE 24 MMOL/L (21-32); CHLORIDE 107 MMOL/L (98-107); CREATININE SERUM 0.85 MG/DL (0.60-1.30); GFR ESTIMATED > 60; GLUCOSE 120 MG/DL (70-105); MAGNESIUM 2.1 MG/DL (1.8-2.4); SODIUM 139 MMOL/L (135-145)
[2016-06-11 11:14] LABS: PROTEIN/CREATININE RATIO 0.11
[2016-06-18 10:44] LABS: BASOPHILS # (AUTO) 0.1 10^3/uL (0.0-0.1); BASOPHILS % (AUTO) 1 % (0-10); EOSINOPHILS # (AUTO) 0.2 10^3/uL (0.0-0.3); EOSINOPHILS % (AUTO) 3 % (0-10); LYMPHOCYTES # (AUTO) 1.5 X 10^3 (1.0-4.0); LYMPHOCYTES % (AUTO) 33 % (12-44); MEAN CORPUSCULAR HEMOGLOBIN 33 PG (25-34); MEAN CORPUSCULAR HGB CONC 33 G/DL (32-36); MEAN CORPUSCULAR VOLUME 100 FL (80-99); MEAN PLATELET VOLUME 9.9 FL (7.4-10.4); MONOCYTES # (AUTO) 0.6 X 10^3 (0.0-1.0); MONOCYTES % (AUTO) 12 % (0-12); NEUTROPHILS # (AUTO) 2.3 X 10^3 (1.8-7.8); NEUTROPHILS % (AUTO) 50 % (42-75); PLATELET COUNT 205 10^3/uL (130-400); RED BLOOD COUNT 3.67 10^6/uL (4.35-5.85); RED CELL DISTRIBUTION WIDTH 15.1 % (10.0-14.5); WHITE BLOOD COUNT 4.6 10^3/uL (4.3-11.0)
[2016-06-18 11:39] LABS: CALCIUM 9.1 MG/DL (8.5-10.1); CREATININE SERUM 0.92 MG/DL (0.60-1.30); MAGNESIUM 1.9 MG/DL (1.8-2.4); POTASSIUM 4.6 MMOL/L (3.6-5.0)
[~2016-06-25] VITALS: Ht 165.1 cm; Wt 83.5 kg
[~2016-06-25 09:23] MED LIST changes: -BARIUM SUSPENSION 2.1% (VANILLA SILQ) 450 ML PO ONE; +BEVACIZUMAB IV SCH; -CATHETER FLUSH 10 ML SYR IV PRN; +D5W 500 ML IV (CANCER CTR) 500 ML IV SCH; +D5W IV SCH; +FOSAPREPITANT 150 MG/NS 150 MG IVPB (CANCER CTR) IV PRN; -IOHEXOL 350 MG/ML 100 ML (OMNIPAQUE 350) VIAL IV ONE; +LEUCOVORIN CALCIUM 400 MG in D5W 250 ML IVPB (CANCER CTR) 250 ML IV SCH; -NS 100 ML (IVPB) BAG IV ONE; +NS IV 1000 ML (CANCER CTR) 1,000 ML IV SCH; +NS IV SCH; +OXALIPLATIN 100 MG, OXALIPLATIN (GENERIC) 40 MG in D5W 250 ML IVPB (CANCER CTR) 250 ML IV SCH; +OXALIPLATIN IV SCH; +PALONOSETRON 0.25 MG, DEXAMETHASONE 10 MG/NS 50 ML IVPB IV PRN
[2016-06-25 09:36] LABS: BASOPHILS % (AUTO) 1 % (0-10); EOSINOPHILS # (AUTO) 0.1 10^3/uL (0.0-0.3); EOSINOPHILS % (AUTO) 3 % (0-10); LYMPHOCYTES # (AUTO) 1.4 X 10^3 (1.0-4.0); LYMPHOCYTES % (AUTO) 33 % (12-44); MEAN CORPUSCULAR HEMOGLOBIN 33 PG (25-34); MEAN CORPUSCULAR HGB CONC 33 G/DL (32-36); MEAN CORPUSCULAR VOLUME 100 FL (80-99); MONOCYTES # (AUTO) 0.7 X 10^3 (0.0-1.0); MONOCYTES % (AUTO) 16 % (0-12); NEUTROPHILS % (AUTO) 47 % (42-75); PLATELET COUNT 125 10^3/uL (130-400); RED BLOOD COUNT 3.49 10^6/uL (4.35-5.85); RED CELL DISTRIBUTION WIDTH 15.8 % (10.0-14.5); WHITE BLOOD COUNT 4.2 10^3/uL (4.3-11.0)
[2016-06-25 10:12] LABS: ALANINE AMINOTRANSFERASE 16 U/L (0-55); ALBUMIN 3.8 G/DL (3.2-4.5); ANION GAP 9 MMOL/L (5-14); ASPARTATE AMINO TRANSFERASE 23 U/L (5-34); BILIRUBIN,TOTAL 0.3 MG/DL (0.1-1.0); BLOOD UREA NITROGEN 10 MG/DL (7-18); BUN/CREATININE RATIO 11; CALCIUM 8.8 MG/DL (8.5-10.1); CARBON DIOXIDE 24 MMOL/L (21-32); CHLORIDE 104 MMOL/L (98-107); GFR ESTIMATED > 60; GLUCOSE 111 MG/DL (70-105); MAGNESIUM 1.7 MG/DL (1.8-2.4); POTASSIUM 3.8 MMOL/L (3.6-5.0); SODIUM 137 MMOL/L (135-145); TOTAL PROTEIN 6.9 G/DL (6.4-8.2)
== END 2016-07-22 | disposition home or self-care (01) ==
LOC: ONC 09:23
PROVIDERS: ATTEND Internal Medicine Hematology & Oncology
DX: Z51.11 Encounter for antineoplastic chemotherapy (principal); C18.4 Malignant neoplasm of transverse colon; C77.2 Secondary and unspecified malignant neoplasm of intra-abdominal lymph nodes; C77.1 Secondary and unspecified malignant neoplasm of intrathoracic lymph nodes; C77.3 Secondary and unspecified malignant neoplasm of axilla and upper limb lymph nodes; E03.9 Hypothyroidism, unspecified; Z79.899 Other long term (current) drug therapy
CPT/HCPCS: 36415; 36591; 80048; 80053; 82378; 82570; 83735; 84156; 85025; 96360; 96361; 96367; 96368; 96375; 96411; 96413; 96415; 96521; 99213

== ENCOUNTER 2016-10-16 10:25 | Outpatient (RCR) | payer MEDICARE, OTHER ==
[2016-10-15 09:47] LABS: BASOPHILS % (AUTO) 1 % (0-10); EOSINOPHILS # (AUTO) 0.3 10^3/uL (0.0-0.3); EOSINOPHILS % (AUTO) 4 % (0-10); LYMPHOCYTES # (AUTO) 1.8 X 10^3 (1.0-4.0); LYMPHOCYTES % (AUTO) 27 % (12-44); MEAN CORPUSCULAR HEMOGLOBIN 31 PG (25-34); MEAN CORPUSCULAR HGB CONC 32 G/DL (32-36); MEAN CORPUSCULAR VOLUME 95 FL (80-99); MEAN PLATELET VOLUME 9.6 FL (7.4-10.4); MONOCYTES # (AUTO) 0.7 X 10^3 (0.0-1.0); MONOCYTES % (AUTO) 11 % (0-12); NEUTROPHILS # (AUTO) 3.9 X 10^3 (1.8-7.8); NEUTROPHILS % (AUTO) 58 % (42-75); PLATELET COUNT 210 10^3/uL (130-400); RED BLOOD COUNT 3.75 10^6/uL (4.35-5.85); RED CELL DISTRIBUTION WIDTH 13.3 % (10.0-14.5); WHITE BLOOD COUNT 6.8 10^3/uL (4.3-11.0)
[2016-10-15 10:19] LABS: ALBUMIN 3.9 GM/DL (3.2-4.5); BILIRUBIN,TOTAL 0.4 MG/DL (0.1-1.0); CALCIUM 10.1 MG/DL (8.5-10.1); CREATININE SERUM 1.04 MG/DL (0.60-1.30); MAGNESIUM 2.1 MG/DL (1.8-2.4); POTASSIUM 4.5 MMOL/L (3.6-5.0); TOTAL PROTEIN 7.9 GM/DL (6.4-8.2)
[~2016-10-16 10:25] MED LIST changes: -BEVACIZUMAB IV SCH; -D5W 500 ML IV (CANCER CTR) 500 ML IV SCH; -D5W IV SCH; -FOSAPREPITANT 150 MG/NS 150 MG IVPB (CANCER CTR) IV PRN; -LEUCOVORIN CALCIUM 400 MG in D5W 250 ML IVPB (CANCER CTR) 250 ML IV SCH; -METO-272 PO; +METO-370 PO; -NS IV 1000 ML (CANCER CTR) 1,000 ML IV SCH; -NS IV SCH; -OXALIPLATIN 100 MG, OXALIPLATIN (GENERIC) 40 MG in D5W 250 ML IVPB (CANCER CTR) 250 ML IV SCH; -OXALIPLATIN IV SCH; -PALONOSETRON 0.25 MG, DEXAMETHASONE 10 MG/NS 50 ML IVPB IV PRN
[2017-01-29] MEDS ORDERED: ONDA8TAB9 PO (16:19)
[2017-01-29] MEDS ORDERED: CHOL20003 PO (16:19)
[2017-01-29] MEDS ORDERED: OXYC-197 PO (16:19)
[2017-01-29] MEDS ORDERED: CEPH-507 PO (16:19)
[2017-02-02] MEDS ORDERED: CEFD300C3 PO (12:41)
== END 2016-11-04 | disposition home or self-care (01) ==
LOC: ONC 10:25
PROVIDERS: ATTEND Internal Medicine Hematology & Oncology
DX: C18.4 Malignant neoplasm of transverse colon (principal); C77.2 Secondary and unspecified malignant neoplasm of intra-abdominal lymph nodes; E03.9 Hypothyroidism, unspecified; Z79.899 Other long term (current) drug therapy; Z45.2 Encounter for adjustment and management of vascular access device
CPT/HCPCS: 36415; 80053; 82378; 83735; 85025; 96523; 99213

== ENCOUNTER 2016-10-28 05:44 | Outpatient (CLI) | payer MEDICARE, OTHER ==
[~2016-10-28] VITALS: Ht 167.6 cm; Wt 84.0 kg
[~2016-10-28 05:44] MED LIST changes: +METO-272 PO; -METO-370 PO
== END 2016-10-28 12:44 ==
LOC: PREOP 05:44
PROVIDERS: ATTEND Surgery
DX: Z01.818 Encounter for other preprocedural examination (principal); R10.13 Epigastric pain; Z85.038 Personal history of other malignant neoplasm of large intestine

== ENCOUNTER 2016-10-29 07:29 | Day surgery (SDC) | payer MEDICARE, OTHER ==
[~2016-10-29] VITALS: Ht 167.6 cm; Wt 84.0 kg
[2016-10-29] MEDS ORDERED: NS IV 500 ML 500 ML IV PRN (07:30)
--- OUTSIDE RECORDS SUMMARY | 2016-10-29 07:38 | XMS REPORT | Continuity of Care Document ---
Author Author [facility] Organization [facility] Address Unknown Phone Unavailable Allergies Active Description Code Type Severity Reaction Onset Reported/Identified Relationship to Patient Clinical Status Yes indomethacin [id number] Drug Allergy Unknown HEAD ACHE, [facility] 07/29/2013 Yes indomethacin sodium [id number] Drug Allergy Unknown HEAD ACHE, [facility] 07/29/2013 Yes hydrocodone [id number] Drug Allergy Mild NAUSEA 08/24/2015 Yes indomethacin sodium [id number] Drug Allergy Mild HEAD ACHE , [facility] 08/24/2015 Yes indomethacin [id number] Drug Allergy Mild HEAD ACHE, [facility] 10/29/2015 Medications Problems Date Dx Coded Attending Type Code Diagnosis Diagnosed By MARGE LANE APRN Ot Z47.89 08/31/2009 Ot 530.11 08/31/2009 Ot 535.40 08/31/2009 Ot 535.50 08/31/2009 Ot 553.3 06/05/2011 Ot 250.00 DIAB FRANSISCO WO COMPL, TYPE II OR UNSPEC TY 06/05/2011 Ot 530.81 ESOPHAGEAL REFLUX 06/05/2011 Ot 553.3 DIAPHRAGMATIC HERNIA 06/05/2011 Ot 575.11 CHRONIC CHOLECYSTITIS 07/31/2013 GRACIELA MCGUIRE DO Ot 244.9 HYPOTHYROIDISM NOS 07/31/2013 GRACIELA MCGUIRE DO Ot 250.00 DIAB FRANSISCO WO COMPL, TYPE II OR UNSPEC TY 07/31/2013 GRACIELA MCGUIRE DO Ot 397.0 TRICUSPID VALVE DISEASE 07/31/2013 GRACIELA MCGUIRE DO Ot 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, UNSPEC, 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 07/31/2013 GRACIELA MCGUIRE DO Ot 424.1 AORTIC VALVE DISORDER 07/31/2013 GRACIELA MCGUIRE DO Ot 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 07/31/2013 GRACIELA MCGUIRE DO Ot 427.31 ATRIAL FIBRILLATION 07/31/2013 GRACIELA MCGUIRE DO Ot 427.32 ATRIAL FLUTTER 07/31/2013 GRACIELA MCGUIRE DO Ot 585.9 CHRONIC KIDNEY DISEASE, UNSPECIFIED 07/31/2013 GRACIELA MCGUIRE DO Ot 786.52 PAINFUL RESPIRATION 07/19/2014 Ot 536.8 07/19/2014 Ot 789.00 07/19/2014 Ot 789.00 07/19/2014 Ot 250.00 07/19/2014 Ot 327.23 07/19/2014 Ot 530.81 07/19/2014 Ot 716.90 07/19/2014 Ot 327.23 07/19/2014 Ot 553.3 07/19/2014 Ot 562.10 07/19/2014 Ot 789.01 07/19/2014 Ot 789.03 07/19/2014 Ot 789.03 07/19/2014 Ot 536.8 07/19/2014 Ot 575.8 07/19/2014 Ot 789.01 07/19/2014 Ot V72.63 07/19/2014 Ot V72.81 07/19/2014 Ot V74.8 07/19/2014 Ot 715.37 07/19/2014 ZORAN MCGUIRE ORGANIZATIONAL PSYCHOLOGIST Ot 780.79 07/19/2014 ZORAN MCGUIRE ORGANIZATIONAL PSYCHOLOGIST Ot 786.09 07/19/2014 ZORAN MCGUIRE ORGANIZATIONAL PSYCHOLOGIST Ot 729.5 07/19/2014 ZORAN MCGUIRE ORGANIZATIONAL PSYCHOLOGIST Ot 785.2 07/19/2014 ZORAN MCGUIRE ORGANIZATIONAL PSYCHOLOGIST Ot 427.31 09/16/2014 ZORAN MCGUIRE ORGANIZATIONAL PSYCHOLOGIST Ot 427.31 10/17/2014 ZORAN MCGUIRE ORGANIZATIONAL PSYCHOLOGIST Ot 427.31 ATRIAL FIBRILLATION 06/27/2015 Ot 250.00 06/27/2015 Ot 327.23 06/27/2015 Ot 530.81 06/27/2015 Ot 716.90 06/27/2015 Ot 327.23 06/27/2015 Ot 553.3 06/27/2015 Ot 562.10 06/27/2015 Ot 789.01 06/27/2015 Ot 789.03 06/27/2015 Ot 789.03 06/27/2015 Ot 536.8 06/27/2015 Ot 575.8 06/27/2015 Ot 789.01 06/27/2015 Ot V72.63 06/27/2015 Ot V72.81 06/27/2015 Ot V74.8 06/27/2015 Ot 715.37 06/27/2015 ZORAN MCGUIRE ORGANIZATIONAL PSYCHOLOGIST Ot 780.79 06/27/2015 ZORAN MCGUIRE ORGANIZATIONAL PSYCHOLOGIST Ot 786.09 06/27/2015 ZORAN MCGUIRE ORGANIZATIONAL PSYCHOLOGIST Ot 729.5 06/27/2015 ZORAN MCGUIRE ORGANIZATIONAL PSYCHOLOGIST Ot 785.2 06/27/2015 ZORAN MCGUIRE ORGANIZATIONAL PSYCHOLOGIST Ot 427.31 06/27/2015 ZORAN MCGUIRE ORGANIZATIONAL PSYCHOLOGIST Ot 427.31 07/27/[address] APRN Ot Z47.89 ENCOUNTER FOR OTHER ORTHOPEDIC AFTERCARE 08/20/2015 Ot 250.00 DIAB FRANSISCO WO COMPL, TYPE II OR UNSPEC TY 08/20/2015 Ot 327.23 OBSTRUCTIVE SLEEP APNEA (ADULT) (PEDIATR 08/20/2015 Ot 530.81 ESOPHAGEAL REFLUX 08/20/2015 Ot 716.90 ARTHROPATHY NOS-UNSPEC 08/20/2015 Ot 327.23 OBSTRUCTIVE SLEEP APNEA (ADULT) (PEDIATR 08/20/2015 Ot 553.3 DIAPHRAGMATIC HERNIA 08/20/2015 Ot 562.10 DIVERTICULOSIS COLON (W/O MENT OF HEMORR 08/20/2015 Ot 789.01 ABDOMINAL PAIN, RIGHT UPPER QUADRANT 08/20/2015 Ot 789.03 ABDOMINAL PAIN, RIGHT LOWER QUADRANT 08/20/2015 Ot 789.03 ABDOMINAL PAIN, RIGHT LOWER QUADRANT 08/20/2015 Ot 536.8 STOMACH FUNCTION DIS NEC 08/20/2015 Ot 575.8 DIS OF GALLBLADDER NEC 08/20/2015 Ot 789.01 ABDOMINAL PAIN, RIGHT UPPER QUADRANT 08/20/2015 Ot V72.63 PRE-PROCEDURAL LABORATORY EXAMINATION 08/20/2015 Ot V72.81 [id number] CARDIOVASCULAR 08/20/2015 Ot V74.8 SCREEN-BACTERIAL DIS NEC 08/20/2015 Ot 715.37 LOC OSTEOARTH NOS-ANKLE 08/20/2015 ZORAN MCGUIRE ORGANIZATIONAL PSYCHOLOGIST Ot 780.79 OTH MALAISE FATIGUE 08/20/2015 ZORAN MCGUIRE ORGANIZATIONAL PSYCHOLOGIST Ot 786.09 RESPIRATORY ABNORM NEC 08/20/2015 MCGUIRE, ZORAN L ORGANIZATIONAL PSYCHOLOGIST Ot 729.5 PAIN IN LIMB 08/20/2015 MCGUIREANG MCNALLYIA L ORGANIZATIONAL PSYCHOLOGIST Ot 785.2 CARDIAC MURMURS NEC 08/20/2015 MCGUIRE, ZORAN L ORGANIZATIONAL PSYCHOLOGIST Ot 427.31 ATRIAL FIBRILLATION 08/20/2015 MCGUIREANG MCNALLYIA L ORGANIZATIONAL PSYCHOLOGIST Ot 427.31 ATRIAL FIBRILLATION 08/20/2015 MCGUIREANG MCNALLYIA L ORGANIZATIONAL PSYCHOLOGIST Ot R50.9 FEVER, UNSPECIFIED 08/20/2015 MCGUIREANG MCNALLYIA L ORGANIZATIONAL PSYCHOLOGIST Ot R50.9 FEVER, UNSPECIFIED 08/20/2015 MCGUIREANG MCNALLYIA L ORGANIZATIONAL PSYCHOLOGIST Ot R50.9 FEVER, UNSPECIFIED 08/20/2015 MCGUIRE, ZORAN L ORGANIZATIONAL PSYCHOLOGIST Ot R50.9 FEVER, UNSPECIFIED 08/22/2015 MCGUIREANG MCNALLYIA L ORGANIZATIONAL PSYCHOLOGIST Ot K44.9 DIAPHRAGMATIC HERNIA WITHOUT OBSTRUCTION 08/22/2015 MCGUIREANG MCNALLYIA L ORGANIZATIONAL PSYCHOLOGIST Ot K76.0 FATTY (CHANGE OF) LIVER, NOT ELSEWHERE C 08/22/2015 MCGUIREANG MCNALLYIA L ORGANIZATIONAL PSYCHOLOGIST Ot R10.31 RIGHT LOWER QUADRANT PAIN 08/22/2015 MCGUIRE, ZORAN L ORGANIZATIONAL PSYCHOLOGIST Ot R10.32 LEFT LOWER QUADRANT PAIN 08/22/2015 MCGUIREANG MCNALLYIA L ORGANIZATIONAL PSYCHOLOGIST Ot R50.9 FEVER, UNSPECIFIED 08/22/2015 MCGUIREANG MCNALLYIA L ORGANIZATIONAL PSYCHOLOGIST Ot K44.9 DIAPHRAGMATIC HERNIA WITHOUT OBSTRUCTION 08/22/2015 MCGUIREANG MCNALLYIA L ORGANIZATIONAL PSYCHOLOGIST Ot K76.0 FATTY (CHANGE OF) LIVER, NOT ELSEWHERE C 08/22/2015 MCGUIREANG MCNALLYIA L ORGANIZATIONAL PSYCHOLOGIST Ot R10.31 RIGHT LOWER QUADRANT PAIN 08/22/2015 MCGUIREADÁNZORAN L ORGANIZATIONAL PSYCHOLOGIST Ot R10.32 LEFT LOWER QUADRANT PAIN 08/22/2015 MCGUIREANG MCNALLYIA L ORGANIZATIONAL PSYCHOLOGIST Ot R50.9 FEVER, UNSPECIFIED 08/23/2015 BILLY VALLE MD Ot M79.622 PAIN IN LEFT UPPER ARM 08/23/2015 BILLY VALLE MD Ot R51 HEADACHE 08/23/2015 BILLY VALLE MD Ot R68.84 JAW PAIN 08/24/2015 BILLY VALLE MD Ot M79.622 PAIN IN LEFT UPPER ARM 08/24/2015 BILLY VALLE MD Ot R51 HEADACHE 08/24/2015 BILLY VALLE MD Ot R68.84 JAW PAIN 08/24/2015 ZORAN MCGUIRE ORGANIZATIONAL PSYCHOLOGIST Ot 427.31 ATRIAL FIBRILLATION 08/24/2015 ZORAN MCGUIRE ORGANIZATIONAL PSYCHOLOGIST Ot 427.31 ATRIAL FIBRILLATION 08/25/2015 BILLY VALLE MD Ot M79.622 PAIN IN LEFT UPPER ARM 08/25/2015 BILLY VALLE MD Ot R51 HEADACHE 08/25/2015 BILLY VALLE MD Ot R68.84 JAW PAIN 08/28/2015 FARIBA GRECO DEBI Ot D49.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 08/28/2015 RAMEZ LINK DOI Ot D50.0 IRON DEFICIENCY ANEMIA SECONDARY TO BLOO 08/28/2015 RAMEZ LINK DOI Ot E03.9 HYPOTHYROIDISM, UNSPECIFIED 08/28/2015 RAMEZ LINK DOI Ot E11.9 TYPE 2 DIABETES MELLITUS WITHOUT COMPLIC 08/28/2015 FARIBA GRECO DEBI Ot E66.9 OBESITY, UNSPECIFIED 08/28/2015 FARIBA GRECO DEBI Ot E78.5 HYPERLIPIDEMIA, UNSPECIFIED 08/28/2015 RAMEZ LINK DOI Ot I12.9 HYPERTENSIVE CHRONIC KIDNEY DISEASE W ST 08/28/2015 FARIBA GRECO DEBI Ot I21.4 NON-ST ELEVATION (NSTEMI) MYOCARDIAL INF 08/28/2015 FARIBA GRECO DEBI Ot I24.9 ACUTE ISCHEMIC HEART DISEASE, UNSPECIFIE 08/28/2015 RAMEZ LINK DOI Ot J18.9 PNEUMONIA, UNSPECIFIED ORGANISM 08/28/2015 FARIBA GRECO DEBI Ot J45.909 UNSPECIFIED ASTHMA, UNCOMPLICATED 08/28/2015 FARIBA GRECO DEBI Ot K20.9 ESOPHAGITIS, UNSPECIFIED 08/28/2015 FARIBA GRECO DEBI Ot K21.0 GASTRO-ESOPHAGEAL REFLUX DISEASE WITH ES 08/28/2015 RAMEZ LINK DOI Ot K25.9 GASTRIC ULCER, UNSP ACUTE OR CHRONIC, 08/28/2015 FARIBA GRECO DEBI Ot K26.9 DUODENAL ULCER, UNSP ACUTE OR CHRONIC 08/28/2015 FARIBA GRECO DEBI Ot K44.9 DIAPHRAGMATIC HERNIA WITHOUT OBSTRUCTION 08/28/2015 RAMEZ LINK DOI Ot K57.30 DVRTCLOS OF LG INT W/O PERFORATION OR AB 08/28/2015 RAMEZ LINK DOI Ot K92.2 GASTROINTESTINAL HEMORRHAGE, UNSPECIFIED 08/28/2015 FARIBA GRECO DEBI Ot N18.3 CHRONIC KIDNEY DISEASE, STAGE 3 (MODERAT 08/28/2015 FARIBA GRECO DEBI Ot R11.2 NAUSEA WITH VOMITING, UNSPECIFIED 08/28/2015 RAMEZ LINK DOI Ot R42 DIZZINESS AND GIDDINESS 08/28/2015 FARIBA GRECO DEBI Ot R51 HEADACHE 08/28/2015 FARIBA GRECO DEBI Ot R59.0 LOCALIZED ENLARGED LYMPH NODES 08/28/2015 RAMEZ LINK DOI Ot Z68.35 BODY MASS INDEX (BMI) 35.0-35.9, ADULT 08/29/2015 FARIBA GRECO DEBI Ot D49.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 08/29/2015 RAMEZ LINK DOI Ot D50.0 IRON DEFICIENCY ANEMIA SECONDARY TO BLOO 08/29/2015 RAMEZ LINK DOI Ot E03.9 HYPOTHYROIDISM, UNSPECIFIED 08/29/2015 FARIBA GRECO DEBI Ot E11.9 TYPE 2 DIABETES MELLITUS WITHOUT COMPLIC 08/29/2015 RAMEZ LINK DOI Ot E66.9 OBESITY, UNSPECIFIED 08/29/2015 FARIBA GRECO DEBI Ot E78.5 HYPERLIPIDEMIA, UNSPECIFIED 08/29/2015 RAMEZ LINK DOI Ot I12.9 HYPERTENSIVE CHRONIC KIDNEY DISEASE W ST 08/29/2015 RAMEZ LINK DOI Ot I21.4 NON-ST ELEVATION (NSTEMI) MYOCARDIAL INF 08/29/2015 RAMEZ LINK DOI Ot I24.9 ACUTE ISCHEMIC HEART DISEASE, UNSPECIFIE 08/29/2015 RAMEZ LINK DOI Ot J18.9 PNEUMONIA, UNSPECIFIED ORGANISM 08/29/2015 RAMEZ LINK DOI Ot J45.909 UNSPECIFIED ASTHMA, UNCOMPLICATED 08/29/2015 RAMEZ LINK DOI Ot K20.9 ESOPHAGITIS, UNSPECIFIED 08/29/2015 FARIBA GRECO DEBI Ot K21.0 GASTRO-ESOPHAGEAL REFLUX DISEASE WITH ES 08/29/2015 RAMEZ LINK DOI Ot K25.9 GASTRIC ULCER, UNSP ACUTE OR CHRONIC, 08/29/2015 FARIBA GRECO DEBI Ot K26.9 DUODENAL ULCER, UNSP ACUTE OR CHRONIC 08/29/2015 FARIBA GRECO DEBI Ot K44.9 DIAPHRAGMATIC HERNIA WITHOUT OBSTRUCTION 08/29/2015 FARIBA GRECO DEBI Ot K57.30 DVRTCLOS OF LG INT W/O PERFORATION OR AB 08/29/2015 FARIBA GRECO DEBI Ot K92.2 GASTROINTESTINAL HEMORRHAGE, UNSPECIFIED 08/29/2015 FARIBA GRECO DEBI Ot N18.3 CHRONIC KIDNEY DISEASE, STAGE 3 (MODERAT 08/29/2015 FARIBA DO DEBI Ot R11.2 NAUSEA WITH VOMITING, UNSPECIFIED 08/29/2015 FARIBA DO DEBI Ot R42 DIZZINESS AND GIDDINESS 08/29/2015 FARIBA GRECO DEBI Ot R51 HEADACHE 08/29/2015 FARIBA DO DEBI Ot R59.0 LOCALIZED ENLARGED LYMPH NODES 08/29/2015 FARIBA GRECO DEBI Ot Z68.35 BODY MASS INDEX (BMI) 35.0-35.9, ADULT 08/29/2015 FARIBA GRECO DEBI Ot D49.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 08/29/2015 FARIBA GRECO DEBI Ot D50.0 IRON DEFICIENCY ANEMIA SECONDARY TO BLOO 08/29/2015 FARIBA GRECO DEBI Ot E03.9 HYPOTHYROIDISM, UNSPECIFIED 08/29/2015 FARIBA GRECO DEBI Ot E11.9 TYPE 2 DIABETES MELLITUS WITHOUT COMPLIC 08/29/2015 FARIBA GRECO DEBI Ot E66.9 OBESITY, UNSPECIFIED 08/29/2015 FARIBA GRECO DEBI Ot E78.5 HYPERLIPIDEMIA, UNSPECIFIED 08/29/2015 FARIBA GRECO DEBI Ot I12.9 HYPERTENSIVE CHRONIC KIDNEY DISEASE W ST 08/29/2015 FARIBA GRECO DEBI Ot I21.4 NON-ST ELEVATION (NSTEMI) MYOCARDIAL INF 08/29/2015 FARIBA GRECO DEBI Ot I24.9 ACUTE ISCHEMIC HEART DISEASE, UNSPECIFIE 08/29/2015 RAMEZ LINK DOI Ot J18.9 PNEUMONIA, UNSPECIFIED ORGANISM 08/29/2015 RAMEZ LINK DOI Ot J45.909 UNSPECIFIED ASTHMA, UNCOMPLICATED 08/29/2015 FARIBA GRECO DEBI Ot K20.9 ESOPHAGITIS, UNSPECIFIED 08/29/2015 FARIBA GRECO DEBI Ot K21.0 GASTRO-ESOPHAGEAL REFLUX DISEASE WITH ES 08/29/2015 FARIBA GRECO DEBI Ot K25.9 GASTRIC ULCER, UNSP ACUTE OR CHRONIC, 08/29/2015 RAMEZ LINK DOI Ot K26.9 DUODENAL ULCER, UNSP ACUTE OR CHRONIC 08/29/2015 FARIBA GRECO DEBI Ot K44.9 DIAPHRAGMATIC HERNIA WITHOUT OBSTRUCTION 08/29/2015 RAMEZ LINK DOI Ot K57.30 DVRTCLOS OF LG INT W/O PERFORATION OR AB 08/29/2015 RAMEZ LINK DOI Ot K92.2 GASTROINTESTINAL HEMORRHAGE, UNSPECIFIED 08/29/2015 FARIBA GRECO DEBI Ot N18.3 CHRONIC KIDNEY DISEASE, STAGE 3 (MODERAT 08/29/2015 RAMEZ LINK DOI Ot R11.2 NAUSEA WITH VOMITING, UNSPECIFIED 08/29/2015 RAMEZ LINK DOI Ot R42 DIZZINESS AND GIDDINESS 08/29/2015 RAMEZ LINK DOI Ot R51 HEADACHE 08/29/2015 FARIBA GRECO DEBI Ot R59.0 LOCALIZED ENLARGED LYMPH NODES 08/29/2015 RAMEZ LINK DOI Ot Z68.35 BODY MASS INDEX (BMI) 35.0-35.9, ADULT 08/29/2015 FARIBA GRECO DEBI Ot D49.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 08/29/2015 RAMEZ LINK DOI Ot D50.0 IRON DEFICIENCY ANEMIA SECONDARY TO BLOO 08/29/2015 RAMEZ LINK DOI Ot E03.9 HYPOTHYROIDISM, UNSPECIFIED 08/29/2015 RAMEZ LINK DOI Ot E11.9 TYPE 2 DIABETES MELLITUS WITHOUT COMPLIC 08/29/2015 RAMEZ LINK DOI Ot E66.9 OBESITY, UNSPECIFIED 08/29/2015 FARIBA RGECO DEBI Ot E78.5 HYPERLIPIDEMIA, UNSPECIFIED 08/29/2015 RAMEZ LINK DOI Ot I12.9 HYPERTENSIVE CHRONIC KIDNEY DISEASE W ST 08/29/2015 RAMEZ LINK DOI Ot I21.4 NON-ST ELEVATION (NSTEMI) MYOCARDIAL INF 08/29/2015 RAMEZ LINK DOI Ot I24.9 ACUTE ISCHEMIC HEART DISEASE, UNSPECIFIE 08/29/2015 RAMEZ LINK DOI Ot J18.9 PNEUMONIA, UNSPECIFIED ORGANISM 08/29/2015 RAMEZ LINK DOI Ot J45.909 UNSPECIFIED ASTHMA, UNCOMPLICATED 08/29/2015 FARIBA GRECO DEBI Ot K20.9 ESOPHAGITIS, UNSPECIFIED 08/29/2015 FARIBA GRECO DEBI Ot K21.0 GASTRO-ESOPHAGEAL REFLUX DISEASE WITH ES 08/29/2015 FARIBA GRECO DEBI Ot K25.9 GASTRIC ULCER, UNSP ACUTE OR CHRONIC, 08/29/2015 FARIBA GRECO DEBI Ot K26.9 DUODENAL ULCER, UNSP ACUTE OR CHRONIC 08/29/2015 FARIBA GRECO DEBI Ot K44.9 DIAPHRAGMATIC HERNIA WITHOUT OBSTRUCTION 08/29/2015 FARIBA GRECO DEBI Ot K57.30 DVRTCLOS OF LG INT W/O PERFORATION OR AB 08/29/2015 FARIBA GRECO DEBI Ot K92.2 GASTROINTESTINAL HEMORRHAGE, UNSPECIFIED 08/29/2015 FARIBA GRECO DEBI Ot N18.3 CHRONIC KIDNEY DISEASE, STAGE 3 (MODERAT 08/29/2015 FARIBA GRECO DEBI Ot R11.2 NAUSEA WITH VOMITING, UNSPECIFIED 08/29/2015 FARIBA GRECO DEBI Ot R42 DIZZINESS AND GIDDINESS 08/29/2015 FARIBA GRECO DEBI Ot R51 HEADACHE 08/29/2015 FARIBA GRECO, DEBI Ot R59.0 LOCALIZED ENLARGED LYMPH NODES 08/29/2015 FARIBA GRECO DEBI Ot Z68.35 BODY MASS INDEX (BMI) 35.0-35.9, ADULT 08/29/2015 FARIBA GRECO DEBI Ot D49.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 08/29/2015 FARIBA GRECO DEBI Ot D50.0 IRON DEFICIENCY ANEMIA SECONDARY TO BLOO 08/29/2015 FARIBA GRECO DEBI Ot E03.9 HYPOTHYROIDISM, UNSPECIFIED 08/29/2015 FARIBA GRECO DEBI Ot E11.9 TYPE 2 DIABETES MELLITUS WITHOUT COMPLIC 08/29/2015 FARIBA GRECO DEBI Ot E66.9 OBESITY, UNSPECIFIED 08/29/2015 FARIBA GRECO DEBI Ot E78.5 HYPERLIPIDEMIA, UNSPECIFIED 08/29/2015 FARIBA GRECO DEBI Ot I12.9 HYPERTENSIVE CHRONIC KIDNEY DISEASE W ST 08/29/2015 FARIBA GRECO DEBI Ot I21.4 NON-ST ELEVATION (NSTEMI) MYOCARDIAL INF 08/29/2015 FARIBA GRECO DEBI Ot I24.9 ACUTE ISCHEMIC HEART DISEASE, UNSPECIFIE 08/29/2015 FARIBA GRECO DEBI Ot J18.9 PNEUMONIA, UNSPECIFIED ORGANISM 08/29/2015 FARIBA GRECO DEBI Ot J45.909 UNSPECIFIED ASTHMA, UNCOMPLICATED 08/29/2015 FARIBA GRECO DEBI Ot K20.9 ESOPHAGITIS, UNSPECIFIED 08/29/2015 FARIBA GRECO DEBI Ot K21.0 GASTRO-ESOPHAGEAL REFLUX DISEASE WITH ES 08/29/2015 FARIBA GRECO DEBI Ot K25.9 GASTRIC ULCER, UNSP ACUTE OR CHRONIC, 08/29/2015 FARIBA GRECO DEBI Ot K26.9 DUODENAL ULCER, UNSP ACUTE OR CHRONIC 08/29/2015 FARIBA GRECO DEBI Ot K44.9 DIAPHRAGMATIC HERNIA WITHOUT OBSTRUCTION 08/29/2015 FARIBA GRECO DEBI Ot K57.30 DVRTCLOS OF LG INT W/O PERFORATION OR AB 08/29/2015 FARIBA GRECO DEBI Ot K92.2 GASTROINTESTINAL HEMORRHAGE, UNSPECIFIED 08/29/2015 FARIBA GRECO DEBI Ot N18.3 CHRONIC KIDNEY DISEASE, STAGE 3 (MODERAT 08/29/2015 FARIBA GRECO DEBI Ot R11.2 NAUSEA WITH VOMITING, UNSPECIFIED 08/29/2015 FARIBA GRECO DEBI Ot R42 DIZZINESS AND GIDDINESS 08/29/2015 FARIBA GRECO DEBI Ot R51 HEADACHE 08/29/2015 FARIBA GRECO DEBI Ot R59.0 LOCALIZED ENLARGED LYMPH NODES 08/29/2015 FARIBA GRECO DEBI Ot Z68.35 BODY MASS INDEX (BMI) 35.0-35.9, ADULT 08/30/2015 FARIBA GRECO DEBI Ot D49.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 08/30/2015 FARIBA GRECO DEBI Ot D50.0 IRON DEFICIENCY ANEMIA SECONDARY TO BLOO 08/30/2015 FARIBA GRECO DEBI Ot E03.9 HYPOTHYROIDISM, UNSPECIFIED 08/30/2015 FARIBA GRECO DEBI Ot E11.9 TYPE 2 DIABETES MELLITUS WITHOUT COMPLIC 08/30/2015 FARIBA GRECO DEBI Ot E66.9 OBESITY, UNSPECIFIED 08/30/2015 FARIBA GRECO DEBI Ot E78.5 HYPERLIPIDEMIA, UNSPECIFIED 08/30/2015 FARIBA GRECO DEBI Ot I12.9 HYPERTENSIVE CHRONIC KIDNEY DISEASE W ST 08/30/2015 FARIBA GRECO DEBI Ot I21.4 NON-ST ELEVATION (NSTEMI) MYOCARDIAL INF 08/30/2015 FARIBA GRECO DEBI Ot I24.9 ACUTE ISCHEMIC HEART DISEASE, UNSPECIFIE 08/30/2015 RAMEZ LINK DOI Ot J18.9 PNEUMONIA, UNSPECIFIED ORGANISM 08/30/2015 RAMEZ LINK DOI Ot J45.909 UNSPECIFIED ASTHMA, UNCOMPLICATED 08/30/2015 FARIBA GRECO DEBI Ot K20.9 ESOPHAGITIS, UNSPECIFIED 08/30/2015 FARIBA GRECO DEBI Ot K21.0 GASTRO-ESOPHAGEAL REFLUX DISEASE WITH ES 08/30/2015 FARIBA GRECO DEBI Ot K25.9 GASTRIC ULCER, UNSP ACUTE OR CHRONIC, 08/30/2015 RAMEZ LINK DOI Ot K26.9 DUODENAL ULCER, UNSP ACUTE OR CHRONIC 08/30/2015 FARIBA GRECO DEBI Ot K44.9 DIAPHRAGMATIC HERNIA WITHOUT OBSTRUCTION 08/30/2015 RAMEZ LINK DOI Ot K57.30 DVRTCLOS OF LG INT W/O PERFORATION OR AB 08/30/2015 FARIBA GRECO DEBI Ot K92.2 GASTROINTESTINAL HEMORRHAGE, UNSPECIFIED 08/30/2015 FARIBA GRECO DEBI Ot N18.3 CHRONIC KIDNEY DISEASE, STAGE 3 (MODERAT 08/30/2015 FARIBA GRECO DEBI Ot R11.2 NAUSEA WITH VOMITING, UNSPECIFIED 08/30/2015 FARIBA GRECO DEBI Ot R42 DIZZINESS AND GIDDINESS 08/30/2015 FARIBA GRECO DEBI Ot R51 HEADACHE 08/30/2015 FARIBA GRECO DEBI Ot R59.0 LOCALIZED ENLARGED LYMPH NODES 08/30/2015 FARIBA GRECO DEBI Ot Z68.35 BODY MASS INDEX (BMI) 35.0-35.9, ADULT 08/30/2015 FARIBA GRECO DEBI Ot 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 08/30/2015 FARIBA GRECO DEBI Ot C80.1 MALIGNANT (PRIMARY) NEOPLASM, UNSPECIFIE 08/30/2015 FARIBA GRECO DEBI Ot D50.0 IRON DEFICIENCY ANEMIA SECONDARY TO BLOO 08/30/2015 FARIBA GRECO DEBI Ot D63.8 ANEMIA IN OTHER CHRONIC DISEASES CLASSIF 08/30/2015 FARIBA GRECO DEBI Ot E03.9 HYPOTHYROIDISM, UNSPECIFIED 08/30/2015 LINK DO DEBI Ot E11.9 TYPE 2 DIABETES MELLITUS WITHOUT COMPLIC 08/30/2015 FARIBA GRECO DEBI Ot E66.9 OBESITY, UNSPECIFIED 08/30/2015 FARIBA GRECO DEBI Ot E78.5 HYPERLIPIDEMIA, UNSPECIFIED 08/30/2015 FARIBA GRECO DEBI Ot I12.9 HYPERTENSIVE CHRONIC KIDNEY DISEASE W ST 08/30/2015 FARIBA GRECO DEBI Ot I21.4 NON-ST ELEVATION (NSTEMI) MYOCARDIAL INF 08/30/2015 FARIBA DO DEBI Ot I24.9 ACUTE ISCHEMIC HEART DISEASE, UNSPECIFIE 08/30/2015 FARIBA GRECO DEBI Ot J18.9 PNEUMONIA, UNSPECIFIED ORGANISM 08/30/2015 FARIBA GRECO DEBI Ot J45.909 UNSPECIFIED ASTHMA, UNCOMPLICATED 08/30/2015 FARIBA GRECO DEBI Ot K21.0 GASTRO-ESOPHAGEAL REFLUX DISEASE WITH ES 08/30/2015 RAMEZ LINK DOI Ot K25.9 GASTRIC ULCER, UNSP ACUTE OR CHRONIC, 08/30/2015 FARIBA GRECO DEBI Ot K26.9 DUODENAL ULCER, UNSP ACUTE OR CHRONIC 08/30/2015 FARIBA GRECO DEBI Ot K44.9 DIAPHRAGMATIC HERNIA WITHOUT OBSTRUCTION 08/30/2015 FARIBA GRECO DEBI Ot K57.30 DVRTCLOS OF LG INT W/O PERFORATION OR AB 08/30/2015 FARIBA GRECO DEBI Ot K92.2 GASTROINTESTINAL HEMORRHAGE, UNSPECIFIED 08/30/2015 FARIBA GRECO DEBI Ot N18.3 CHRONIC KIDNEY DISEASE, STAGE 3 (MODERAT 08/30/2015 FARIBA GRECO DEBI Ot R42 DIZZINESS AND GIDDINESS 08/30/2015 FARIBA GRECO DEBI Ot R51 HEADACHE 08/30/2015 LINK DO DEBI Ot R59.0 LOCALIZED ENLARGED LYMPH NODES 08/30/2015 FARIBA GRECO DEBI Ot Z68.35 BODY MASS INDEX (BMI) 35.0-35.9, ADULT 08/31/2015 FARIBA DO DEBI Ot 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 08/31/2015 FARIBA DO DEBI Ot C80.1 MALIGNANT (PRIMARY) NEOPLASM, UNSPECIFIE 08/31/2015 FARIBA GRECO DEBI Ot D50.0 IRON DEFICIENCY ANEMIA SECONDARY TO BLOO 08/31/2015 DEBI LINK DO Ot D63.8 ANEMIA IN OTHER CHRONIC DISEASES CLASSIF 08/31/2015 DEBI LINK DO Ot E03.9 HYPOTHYROIDISM, UNSPECIFIED 08/31/2015 RAMEZ LINK DOI Ot E11.9 TYPE 2 DIABETES MELLITUS WITHOUT COMPLIC 08/31/2015 DEBI LINK DO Ot E66.9 OBESITY, UNSPECIFIED 08/31/2015 DEBI LINK DO Ot E78.5 HYPERLIPIDEMIA, UNSPECIFIED 08/31/2015 DEBI LINK DO Ot I12.9 HYPERTENSIVE CHRONIC KIDNEY DISEASE W ST 08/31/2015 DEBI LINK DO Ot I21.4 NON-ST ELEVATION (NSTEMI) MYOCARDIAL INF 08/31/2015 DEBI LINK DO Ot I24.9 ACUTE ISCHEMIC HEART DISEASE, UNSPECIFIE 08/31/2015 DEBI LINK DO Ot J18.9 PNEUMONIA, UNSPECIFIED ORGANISM 08/31/2015 DEBI LINK DO Ot J45.909 UNSPECIFIED ASTHMA, UNCOMPLICATED 08/31/2015 DEBI LINK DO Ot K21.0 GASTRO-ESOPHAGEAL REFLUX DISEASE WITH ES 08/31/2015 DEBI LINK DO Ot K25.9 GASTRIC ULCER, UNSP ACUTE OR CHRONIC, 08/31/2015 DEBI LINK DO Ot K26.9 DUODENAL ULCER, UNSP ACUTE OR CHRONIC 08/31/2015 RAMEZ LINK DOI Ot K44.9 DIAPHRAGMATIC HERNIA WITHOUT OBSTRUCTION 08/31/2015 RAMEZ LINK DOI Ot K57.30 DVRTCLOS OF LG INT W/O PERFORATION OR AB 08/31/2015 DEBI LINK DO Ot K92.2 GASTROINTESTINAL HEMORRHAGE, UNSPECIFIED 08/31/2015 DEBI LINK DO Ot N18.3 CHRONIC KIDNEY DISEASE, STAGE 3 (MODERAT 08/31/2015 RAMEZ LINK DOI Ot R51 HEADACHE 08/31/2015 RAMEZ LINK DOI Ot R59.0 LOCALIZED ENLARGED LYMPH NODES 08/31/2015 DEBI LINK DO Ot Z68.35 BODY MASS INDEX (BMI) 35.0-35.9, ADULT 09/03/2015 DEBI LINK DO Ot 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 09/03/2015 DEBI LINK DO Ot C80.1 MALIGNANT (PRIMARY) NEOPLASM, UNSPECIFIE 09/03/2015 RAMEZ LINK DOI Ot D50.0 IRON DEFICIENCY ANEMIA SECONDARY TO BLOO 09/03/2015 RAMEZ LINK DOI Ot D63.8 ANEMIA IN OTHER CHRONIC DISEASES CLASSIF 09/03/2015 RAMEZ LINK DOI Ot D69.6 THROMBOCYTOPENIA, UNSPECIFIED 09/03/2015 RAMEZ LINK DOI Ot E03.9 HYPOTHYROIDISM, UNSPECIFIED 09/03/2015 RAMEZ LINK DOI Ot E11.9 TYPE 2 DIABETES MELLITUS WITHOUT COMPLIC 09/03/2015 RAMEZ LINK DOI Ot E66.9 OBESITY, UNSPECIFIED 09/03/2015 RAMEZ LINK DOI Ot E78.5 HYPERLIPIDEMIA, UNSPECIFIED 09/03/2015 RAMEZ LINK DOI Ot I12.9 HYPERTENSIVE CHRONIC KIDNEY DISEASE W ST 09/03/2015 RAMEZ LINK DOI Ot I21.4 NON-ST ELEVATION (NSTEMI) MYOCARDIAL INF 09/03/2015 DEBI LINK DO Ot I24.9 ACUTE ISCHEMIC HEART DISEASE, UNSPECIFIE 09/03/2015 RAMEZ LINK DOI Ot J18.9 PNEUMONIA, UNSPECIFIED ORGANISM 09/03/2015 RAMEZ LINK DOI Ot J40 BRONCHITIS, NOT SPECIFIED ACUTE OR CH 09/03/2015 RAMEZ LINK DOI Ot J45.909 UNSPECIFIED ASTHMA, UNCOMPLICATED 09/03/2015 RAMEZ LINK DOI Ot K21.0 GASTRO-ESOPHAGEAL REFLUX DISEASE WITH ES 09/03/2015 RAMEZ LINK DOI Ot K21.9 GASTRO-ESOPHAGEAL REFLUX DISEASE WITHOUT 09/03/2015 RAMEZ LINK DOI Ot K25.9 GASTRIC ULCER, UNSP ACUTE OR CHRONIC, 09/03/2015 RAMEZ LINK DOI Ot K26.9 DUODENAL ULCER, UNSP ACUTE OR CHRONIC 09/03/2015 RAMEZ LINK DOI Ot K44.9 DIAPHRAGMATIC HERNIA WITHOUT OBSTRUCTION 09/03/2015 RAMEZ LINK DOI Ot K57.30 DVRTCLOS OF LG INT W/O PERFORATION OR AB 09/03/2015 RAMEZ LINK DOI Ot K92.2 GASTROINTESTINAL HEMORRHAGE, UNSPECIFIED 09/03/2015 RAMEZ LINK DOI Ot L60.8 OTHER NAIL DISORDERS 09/03/2015 RAMEZ LINK DOI Ot N18.3 CHRONIC KIDNEY DISEASE, STAGE 3 (MODERAT 09/03/2015 FARIBA GRECO DEBI Ot R51 HEADACHE 09/03/2015 RAMEZ LINK DOI Ot R59.0 LOCALIZED ENLARGED LYMPH NODES 09/03/2015 RAMEZ LINK DOI Ot R94.8 ABNORMAL RESULTS OF FUNCTION STUDIES OF 09/03/2015 RAMEZ LINK DOI Ot Z68.32 BODY MASS INDEX (BMI) 32.0-32.9, ADULT 09/03/2015 RAMEZ LINK DOI Ot Z68.35 BODY MASS INDEX (BMI) 35.0-35.9, ADULT 09/05/2015 FARIBA GRECO DEBI Ot C19 MALIGNANT NEOPLASM OF RECTOSIGMOID JUNCT 09/05/2015 FARIBA GRECO DEBI Ot J90 PLEURAL EFFUSION, NOT ELSEWHERE CLASSIFI 09/05/2015 FARIBA GRECO DEBI Ot R59.0 LOCALIZED ENLARGED LYMPH NODES 09/05/2015 FARIBA GRECO DEBI Ot C19 MALIGNANT NEOPLASM OF RECTOSIGMOID JUNCT 09/05/2015 FARIBA GRECO DEBI Ot J90 PLEURAL EFFUSION, NOT ELSEWHERE CLASSIFI 09/05/2015 FARIBA GRECO DEBI Ot R59.0 LOCALIZED ENLARGED LYMPH NODES 09/07/2015 TORI BAILON, BILLY Liz Ot M79.622 PAIN IN LEFT UPPER ARM 09/07/2015 BILLY VALLE MD Ot R51 HEADACHE 09/07/2015 BILLY VALLE MD Ot R68.84 JAW PAIN 09/11/2015 ZORAN MCGUIRE ORGANIZATIONAL PSYCHOLOGIST Ot K44.9 DIAPHRAGMATIC HERNIA WITHOUT OBSTRUCTION 09/11/2015 ZORAN MCGUIRE ORGANIZATIONAL PSYCHOLOGIST Ot K76.0 FATTY (CHANGE OF) LIVER, NOT ELSEWHERE C 09/11/2015 ZORAN MCGUIRE ORGANIZATIONAL PSYCHOLOGIST Ot R10.31 RIGHT LOWER QUADRANT PAIN 09/11/2015 ZORAN MCGUIRE ORGANIZATIONAL PSYCHOLOGIST Ot R10.32 LEFT LOWER QUADRANT PAIN 09/11/2015 ZORAN MCGUIRE ORGANIZATIONAL PSYCHOLOGIST Ot R50.9 FEVER, UNSPECIFIED 09/13/2015 GRACIELA MCGUIRE DO Ot R07.9 CHEST PAIN, UNSPECIFIED 10/01/2015 DAVID BAILON, ANDREI Rao Ot C18.9 MALIGNANT NEOPLASM OF COLON, UNSPECIFIED 10/01/2015 DAVID BAILON, ANDREI Rao Ot 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 10/02/2015 KATHY BAILON FACC, ALI FACP CCDS Ot D50.0 IRON DEFICIENCY ANEMIA SECONDARY TO BLOO 10/02/2015 KATHY BAILON FACC, ALI FACP CCDS Ot E11.22 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 10/02/2015 KATHY BAILON FACC, ALI FACP CCDS Ot E66.9 OBESITY, UNSPECIFIED 10/02/2015 KATHY BAILON FACC, ALI FACP CCDS Ot I12.9 HYPERTENSIVE CHRONIC KIDNEY DISEASE W ST 10/02/2015 KATHY BAILON FACC, ALI FACP CCDS Ot I25.10 ATHSCL HEART DISEASE OF [place] CORONARY 10/02/2015 KATHY BAILON FACC, ALI FACP CCDS Ot K92.2 GASTROINTESTINAL HEMORRHAGE, UNSPECIFIED 10/02/2015 KATHY BAILON FACC, ALI FACP CCDS Ot N18.4 CHRONIC KIDNEY DISEASE, STAGE 4 ( SEVERE) 10/02/2015 KATHY BAILON FACC, ALI FACP CCDS Ot R94.39 ABNORMAL RESULT OF OTHER CARDIOVASCULAR 10/02/2015 KATHY BAILON FACC, ALI FACP CCDS Ot Z68.33 BODY MASS INDEX (BMI) 33.0-33.9 , ADULT 10/02/2015 KATHY BAILON FACC, ALI FACP CCDS Ot 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 10/04/2015 DEBI LINK DO Ot C19 MALIGNANT NEOPLASM OF RECTOSIGMOID JUNCT 10/04/2015 DEBI LINK DO Ot J90 PLEURAL EFFUSION, NOT ELSEWHERE CLASSIFI 10/04/2015 DEBI LINK DO Ot R59.0 LOCALIZED ENLARGED LYMPH NODES 10/04/2015 GRACIELA MCGUIRE DO Ot R07.9 CHEST PAIN, UNSPECIFIED 10/08/2015 ZORAN MCGUIRE ORGANIZATIONAL PSYCHOLOGIST Ot 427.31 ATRIAL FIBRILLATION 10/08/2015 ANDREI HERNANDEZ MD Ot C18.9 MALIGNANT NEOPLASM OF COLON, UNSPECIFIED 10/08/2015 ANDREI HERNANDEZ MD Ot C79.9 SECONDARY MALIGNANT NEOPLASM OF UNSPECIF 10/08/2015 ANDREI HERNANDEZ MD Ot Z01.818 ENCOUNTER FOR OTHER PREPROCEDURAL EXAMIN 10/09/2015 ANDREI HERNANDEZ MD Ot C18.9 MALIGNANT NEOPLASM OF COLON, UNSPECIFIED 10/09/2015 DAVID BAILON, ANDREI Rao Ot C79.9 SECONDARY MALIGNANT NEOPLASM OF UNSPECIF 10/09/2015 DAVID BAILON, ANDREI Rao Ot Z01.818 ENCOUNTER FOR OTHER PREPROCEDURAL EXAMIN 10/16/2015 DAVID BAILON, ANDREI Rao Ot C18.9 MALIGNANT NEOPLASM OF COLON, UNSPECIFIED 10/16/2015 DAVID BAILON, ANDREI Rao Ot 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 10/25/2015 KATHY BAILON FACC, TOM FACP CCDS Ot D50.0 IRON DEFICIENCY ANEMIA SECONDARY TO BLOO 10/25/2015 KATHY BAILON FACC, ALI FACP CCDS Ot E11.22 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 10/25/2015 KATHY BAILON FACC, ALI FACP CCDS Ot E66.9 OBESITY, UNSPECIFIED 10/25/2015 KATHY BAILON FACC, ALI FACP CCDS Ot I12.9 HYPERTENSIVE CHRONIC KIDNEY DISEASE W ST 10/25/2015 KATHY BAILON FACC, ALI FACP CCDS Ot I25.10 ATHSCL HEART DISEASE OF [place] CORONARY 10/25/2015 KATHY BAILON FACC, ALI FACP CCDS Ot K92.2 GASTROINTESTINAL HEMORRHAGE, UNSPECIFIED 10/25/2015 KATHY BAILON FACC, ALI FACP CCDS Ot N18.4 CHRONIC KIDNEY DISEASE, STAGE 4 ( SEVERE) 10/25/2015 KATHY BAILON FACC, ALI FACP CCDS Ot R94.39 ABNORMAL RESULT OF OTHER CARDIOVASCULAR 10/25/2015 KATHY BAILON FACC, ALI FACP CCDS Ot Z68.33 BODY MASS INDEX (BMI) 33.0-33.9 , ADULT 10/25/2015 KATHY BAILON FACC, ALI FACP CCDS Ot 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 10/25/2015 KATHY BAILON FACC, ALI FACP CCDS Ot D50.0 IRON DEFICIENCY ANEMIA SECONDARY TO BLOO 10/25/2015 KATHY BAILON FACC, ALI FACP CCDS Ot E11.22 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 10/25/2015 KATHY BAILON FACC, ALI FACP CCDS Ot E66.9 OBESITY, UNSPECIFIED 10/25/2015 KATHY BAILON FACC, ALI FACP CCDS Ot I12.9 HYPERTENSIVE CHRONIC KIDNEY DISEASE W ST 10/25/2015 KATHY BAILON FACC, ALI FACP CCDS Ot I25.10 ATHSCL HEART DISEASE OF [place] CORONARY 10/25/2015 KATHY BAILON FACC, ALI FACP CCDS Ot K92.2 GASTROINTESTINAL HEMORRHAGE, UNSPECIFIED 10/25/2015 KATHY BAILON FACC, ALI FACP CCDS Ot N18.4 CHRONIC KIDNEY DISEASE, STAGE 4 ( SEVERE) 10/25/2015 KATHY BAILON FACC, ALI FACP CCDS Ot R94.39 ABNORMAL RESULT OF OTHER CARDIOVASCULAR 10/25/2015 KATHY BAILON FACC, ALI FACP CCDS Ot Z68.33 BODY MASS INDEX (BMI) 33.0-33.9 , ADULT 10/25/2015 KATHY BAILON FACC, ALI FACP CCDS Ot Z79.899 OTHER LONGTERM (CURRENT) DRUG THERAPY 10/26/2015 ANDREI HERNANDEZ MD Ot 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 10/26/2015 ANDREI HERNANDEZ MD M Ot E03.9 HYPOTHYROIDISM, UNSPECIFIED 10/26/2015 ANDREI HERNANDEZ MD M Ot R11.2 NAUSEA WITH VOMITING, UNSPECIFIED 10/26/2015 ANDREI HERNANDEZ MD M Ot 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 10/26/2015 ANDREI HERNANDEZ MD M Ot C77.2 SECONDARY AND UNSP MALIGNANT NEOPLASM OF 10/26/2015 ANDREI HERNANDEZ MD M Ot E03.9 HYPOTHYROIDISM, UNSPECIFIED 10/26/2015 ANDREI HERNANDEZ MD M Ot R11.2 NAUSEA WITH VOMITING, UNSPECIFIED 10/29/2015 ZORAN MCGUIRE ORGANIZATIONAL PSYCHOLOGIST Ot 427.31 ATRIAL FIBRILLATION 10/30/2015 ANDREI HERNANDEZ MD M Ot 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 10/30/2015 ANDREI HERNANDEZ MD M Ot K91.3 POSTPROCEDURAL INTESTINAL OBSTRUCTION 10/30/2015 ANDREI HERNANDEZ MD M Ot 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 10/30/2015 ANDREI HERNANDEZ MD M Ot K91.3 POSTPROCEDURAL INTESTINAL OBSTRUCTION 10/30/2015 ANDREI HERNANDEZ MD Ot 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 10/30/2015 ANDREI HERNANDEZ MD M Ot K91.3 POSTPROCEDURAL INTESTINAL OBSTRUCTION 10/30/2015 ANDREI HERNANDEZ MD M Ot 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 10/30/2015 DAVID BAILON, ANDREI Rao Ot K91.3 POSTPROCEDURAL INTESTINAL OBSTRUCTION 10/31/2015 DAVID BAILON, ANDREI Rao Ot 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 10/31/2015 DAVID BAILON, ANDREI Rao Ot K91.3 POSTPROCEDURAL INTESTINAL OBSTRUCTION 11/02/2015 DAVID BAILON, ANDREI Rao Ot 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 11/02/2015 DAVID BAILON, ANDREI Rao Ot K91.3 POSTPROCEDURAL INTESTINAL OBSTRUCTION 11/03/2015 DAVID BAILON, ANDREI Rao Ot 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 11/03/2015 DAVID BAILON, ANDREI Rao Ot K91.3 POSTPROCEDURAL INTESTINAL OBSTRUCTION 11/04/2015 DAVID BAILON, ANDREI Rao Ot 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 11/04/2015 DAVID BAILON, ANDREI Rao Ot K91.3 POSTPROCEDURAL INTESTINAL OBSTRUCTION 11/04/2015 DAVID BAILON, ANDREI M Ot Z85.038 PERSONAL HISTORY OF MALIGNANT NEOPLASM O 12/03/2015 DAVID BAILON, ANDREI Rao Ot 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 12/03/2015 DAVID BAILON, ANDREI Rao Ot C79.9 SECONDARY MALIGNANT NEOPLASM OF UNSPECIF 12/03/2015 DAVID BAILON, ANDREI Rao Ot Z01.818 ENCOUNTER FOR OTHER PREPROCEDURAL EXAMIN 12/04/2015 DAVID BAILON, ANDREI Rao Ot 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 12/04/2015 DAVID BAILON, ANDREI Rao Ot C79.9 SECONDARY MALIGNANT NEOPLASM OF UNSPECIF 12/04/2015 DAVID BAILON, ANDREI Rao Ot Z01.818 ENCOUNTER FOR OTHER PREPROCEDURAL EXAMIN 12/04/2015 RICHARD GRIMALDO Ot 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 12/05/2015 Ot 553.3 DIAPHRAGMATIC HERNIA 12/05/2015 Ot 562.10 DIVERTICULOSIS COLON (W/O MENT OF HEMORR 12/05/2015 Ot 789.01 ABDOMINAL PAIN, RIGHT UPPER QUADRANT 12/05/2015 Ot 789.03 ABDOMINAL PAIN, RIGHT LOWER QUADRANT 12/05/2015 Ot 789.03 ABDOMINAL PAIN, RIGHT LOWER QUADRANT 12/05/2015 Ot 536.8 STOMACH FUNCTION DIS NEC 12/05/2015 Ot 575.8 DIS OF GALLBLADDER NEC 12/05/2015 Ot 789.01 ABDOMINAL PAIN, RIGHT UPPER QUADRANT 12/05/2015 Ot V72.63 PRE-PROCEDURAL LABORATORY EXAMINATION 12/05/2015 Ot V72.81 [id number] CARDIOVASCULAR 12/05/2015 Ot V74.8 SCREEN-BACTERIAL DIS NEC 12/05/2015 Ot 715.37 LOC OSTEOARTH NOS-ANKLE 12/05/2015 MCGUIREZORAN MCNALLY ORGANIZATIONAL PSYCHOLOGIST Ot 780.79 OTH MALAISE FATIGUE 12/05/2015 MCGUIRE ZORAN Martin ORGANIZATIONAL PSYCHOLOGIST Ot 786.09 RESPIRATORY ABNORM NEC 12/05/2015 MCGUIREZORAN MCNALLY ORGANIZATIONAL PSYCHOLOGIST Ot 729.5 PAIN IN LIMB 12/05/2015 MCGUIREZORAN MCNALLY ORGANIZATIONAL PSYCHOLOGIST Ot 785.2 CARDIAC MURMURS NEC 12/05/2015 MCGUIREZORAN MCNALLY ORGANIZATIONAL PSYCHOLOGIST Ot 427.31 ATRIAL FIBRILLATION 12/05/2015 MAYNOR ZORAN Martin ORGANIZATIONAL PSYCHOLOGIST Ot 427.31 ATRIAL FIBRILLATION 12/05/2015 MAYNOR ZORAN Martin ORGANIZATIONAL PSYCHOLOGIST Ot K44.9 DIAPHRAGMATIC HERNIA WITHOUT OBSTRUCTION 12/05/2015 MAYNOR ZORAN Martin ORGANIZATIONAL PSYCHOLOGIST Ot K76.0 FATTY (CHANGE OF) LIVER, NOT ELSEWHERE C 12/05/2015 MAYNOR ZORAN Martin ORGANIZATIONAL PSYCHOLOGIST Ot R10.31 RIGHT LOWER QUADRANT PAIN 12/05/2015 MAYNOR ZORAN Martin ORGANIZATIONAL PSYCHOLOGIST Ot R10.32 LEFT LOWER QUADRANT PAIN 12/05/2015 MAYNOR ZORAN Martin ORGANIZATIONAL PSYCHOLOGIST Ot R50.9 FEVER, UNSPECIFIED 12/05/2015 DEBI LINK DO Ot C19 MALIGNANT NEOPLASM OF RECTOSIGMOID JUNCT 12/05/2015 DEBI LINK DO Ot J90 PLEURAL EFFUSION, NOT ELSEWHERE CLASSIFI 12/05/2015 DEBI LNIK DO Ot R59.0 LOCALIZED ENLARGED LYMPH NODES 12/05/2015 GRACIELA MCGUIRE DO Ot R07.9 CHEST PAIN, UNSPECIFIED 12/05/2015 DAVID BAILON, ANDREI Rao Ot C18.9 MALIGNANT NEOPLASM OF COLON, UNSPECIFIED 12/05/2015 DAVID BAILON, ANDREI Rao Ot 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 12/05/2015 RICHARD GRIMADLO Ot 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 12/05/2015 DILLAN, BOBAN N Ot C77.2 SECONDARY AND UNSP MALIGNANT NEOPLASM OF 12/05/2015 RICHARD GRIMALDO N Ot E03.9 HYPOTHYROIDISM, UNSPECIFIED 12/05/2015 RICHARD GRIMALDO N Ot 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 12/05/2015 DILLANRICHARD ORTIZ N Ot 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 12/05/2015 RICHARD GRIMALDO N Ot C77.2 SECONDARY AND UNSP MALIGNANT NEOPLASM OF 12/05/2015 RICHARD GRIMALDO N Ot E03.9 HYPOTHYROIDISM, UNSPECIFIED 12/05/2015 DAVID BAILON, ANDREI M Ot 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 12/05/2015 DAVID BAILON, ANDREI Rao Ot E11.9 TYPE 2 DIABETES MELLITUS WITHOUT COMPLIC 12/05/2015 DAVID BAILON, ANDREI M Ot Z11.2 ENCOUNTER FOR SCREENING FOR OTHER BACTER 01/04/2016 RICHARD GRIMALDO N Ot 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 01/04/2016 RICHARD GRIMALDO N Ot C77.2 SECONDARY AND UNSP MALIGNANT NEOPLASM OF 01/04/2016 RICHARD GRIMALDO N Ot E03.9 HYPOTHYROIDISM, UNSPECIFIED 01/04/2016 SAMSON MILLER ORGANIZATIONAL PSYCHOLOGIST Ot 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 01/04/2016 SAMSON MILLER ORGANIZATIONAL PSYCHOLOGIST Ot C77.2 SECONDARY AND UNSP MALIGNANT NEOPLASM OF 01/04/2016 SAMSON MILLER ORGANIZATIONAL PSYCHOLOGIST Ot E03.9 HYPOTHYROIDISM, UNSPECIFIED 01/04/2016 SAMSON MILLER ORGANIZATIONAL PSYCHOLOGIST Ot 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 01/06/2016 RICHARD GRIMALDO N Ot 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 01/06/2016 RICHARD GRIMALDO N Ot C77.2 SECONDARY AND UNSP MALIGNANT NEOPLASM OF 01/06/2016 RICHARD GRIMALDO N Ot E03.9 HYPOTHYROIDISM, UNSPECIFIED 01/08/2016 RICHARD GRIMALDO N Ot 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 01/21/2016 DILLAN, BOBTRI N Ot 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 01/21/2016 DILLANSEUN ORTIZAN N Ot C77.2 SECONDARY AND UNSP MALIGNANT NEOPLASM OF 01/21/2016 RICHARD GRIMALDO N Ot E03.9 HYPOTHYROIDISM, UNSPECIFIED 01/24/2016 DILLANRICHARD N Ot 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 01/24/2016 RICHARD GRIMALDO N Ot C77.2 SECONDARY AND UNSP MALIGNANT NEOPLASM OF 01/24/2016 RICHARD GRIMALDO N Ot E03.9 HYPOTHYROIDISM, UNSPECIFIED 01/30/2016 DILLANRICHARD ORTIZ N Ot 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 01/30/2016 RICHARD GRIMLADO N Ot C77.2 SECONDARY AND UNSP MALIGNANT NEOPLASM OF 01/30/2016 RICHARD GRIMALDO N Ot E03.9 HYPOTHYROIDISM, UNSPECIFIED 01/30/2016 DILLANRICHARD N Ot 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 02/20/2016 RICHARD GRIMALDO N Ot 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 02/20/2016 RICHARD GRIMALDO N Ot C77.2 SECONDARY AND UNSP MALIGNANT NEOPLASM OF 02/20/2016 RICHARD GRIMALDO N Ot E03.9 HYPOTHYROIDISM, UNSPECIFIED 02/20/2016 DILLANRICHARD N Ot 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 03/19/2016 RICHARD GRIMALDO N Ot 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 03/19/2016 DILLANRICHARD N Ot C77.2 SECONDARY AND UNSP MALIGNANT NEOPLASM OF 03/19/2016 RICHARD GRIMALDO N Ot E03.9 HYPOTHYROIDISM, UNSPECIFIED 03/19/2016 DILLANRICHARD N Ot Z79.899 OTHER LONGTERM (CURRENT) DRUG THERAPY 03/19/2016 RICHARD GRIMALDO N Ot 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 03/19/2016 RICHARD GRIMALDO N Ot C77.2 SECONDARY AND UNSP MALIGNANT NEOPLASM OF 03/19/2016 DILLANRICHARD N Ot E03.9 HYPOTHYROIDISM, UNSPECIFIED 03/19/2016 DILLANSEUNAN N Ot 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 03/26/2016 ZORAN MCGUIRE L ORGANIZATIONAL PSYCHOLOGIST Ot E03.9 HYPOTHYROIDISM, UNSPECIFIED 03/26/2016 ZORAN MCGUIRE L ORGANIZATIONAL PSYCHOLOGIST Ot E55.9 VITAMIN D DEFICIENCY, UNSPECIFIED 03/27/2016 ZORAN MCGUIRE L ORGANIZATIONAL PSYCHOLOGIST Ot E03.9 HYPOTHYROIDISM, UNSPECIFIED 03/27/2016 ZORAN MCGUIRE L ORGANIZATIONAL PSYCHOLOGIST Ot E11.65 TYPE 2 DIABETES MELLITUS WITH HYPERGLYCE 03/27/2016 MCGUIREZORAN MCNALLY ORGANIZATIONAL PSYCHOLOGIST Ot E53.8 DEFICIENCY OF OTHER SPECIFIED B GROUP 03/27/2016 ZORAN MCGUIRE L ORGANIZATIONAL PSYCHOLOGIST Ot E55.9 VITAMIN D DEFICIENCY, UNSPECIFIED 03/27/2016 ANG MCGUIREIA L ORGANIZATIONAL PSYCHOLOGIST Ot E61.2 MAGNESIUM DEFICIENCY 03/27/2016 MCGUIREZORAN MCNALLY L ORGANIZATIONAL PSYCHOLOGIST Ot E03.9 HYPOTHYROIDISM, UNSPECIFIED 03/27/2016 MCGUIREANG MCNALLYIA L ORGANIZATIONAL PSYCHOLOGIST Ot E11.65 TYPE 2 DIABETES MELLITUS WITH HYPERGLYCE 03/27/2016 MCGUIREZORAN MCNALLY L ORGANIZATIONAL PSYCHOLOGIST Ot E53.8 DEFICIENCY OF OTHER SPECIFIED B GROUP 03/27/2016 MCGUIREZORAN MCNALLY L ORGANIZATIONAL PSYCHOLOGIST Ot E55.9 VITAMIN D DEFICIENCY, UNSPECIFIED 03/27/2016 MCGUIREZORAN MCNALLY L ORGANIZATIONAL PSYCHOLOGIST Ot E61.2 MAGNESIUM DEFICIENCY 03/27/2016 MCGUIREZORAN MCNALLY ORGANIZATIONAL PSYCHOLOGIST Ot E03.9 HYPOTHYROIDISM, UNSPECIFIED 03/27/2016 MCGUIREZORAN MCNALLY L ORGANIZATIONAL PSYCHOLOGIST Ot E11.65 TYPE 2 DIABETES MELLITUS WITH HYPERGLYCE 03/27/2016 MCGUIREZORAN MCNALLY L ORGANIZATIONAL PSYCHOLOGIST Ot E53.8 DEFICIENCY OF OTHER SPECIFIED B GROUP 03/27/2016 MCGUIREZORAN MCNALLY L ORGANIZATIONAL PSYCHOLOGIST Ot E55.9 VITAMIN D DEFICIENCY, UNSPECIFIED 03/27/2016 ZORAN MCGUIRE L ORGANIZATIONAL PSYCHOLOGIST Ot E61.2 MAGNESIUM DEFICIENCY 03/27/2016 MCGUIREZORAN MCNALLY ORGANIZATIONAL PSYCHOLOGIST Ot E03.9 HYPOTHYROIDISM, UNSPECIFIED 03/27/2016 MCGUIREZORAN MCNALLY Veronica ORGANIZATIONAL PSYCHOLOGIST Ot E11.65 TYPE 2 DIABETES MELLITUS WITH HYPERGLYCE 03/27/2016 MCGUIREZORAN MCNALLY ORGANIZATIONAL PSYCHOLOGIST Ot E53.8 DEFICIENCY OF OTHER SPECIFIED B GROUP 03/27/2016 MCGUIREZORAN MCNALLY L ORGANIZATIONAL PSYCHOLOGIST Ot E55.9 VITAMIN D DEFICIENCY, UNSPECIFIED 03/27/2016 MCGUIREZORAN MCNALLY L ORGANIZATIONAL PSYCHOLOGIST Ot E61.2 MAGNESIUM DEFICIENCY 04/02/2016 RICHARD GRIMALDO Ot 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 04/16/2016 RICHARD GRIMALDO Ot 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 04/16/2016 RICHARD GRIMALDO Ot C77.2 SECONDARY AND UNSP MALIGNANT NEOPLASM OF 04/16/2016 RICHARD GRIMALDO Jody Ot E03.9 HYPOTHYROIDISM, UNSPECIFIED 04/16/2016 RICHARD GRIMALDO Jody Ot 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 04/17/2016 MCGUIRE ZORAN L ORGANIZATIONAL PSYCHOLOGIST Ot E03.9 HYPOTHYROIDISM, UNSPECIFIED 04/17/2016 ZORAN MCGUIRE ORGANIZATIONAL PSYCHOLOGIST Ot E11.65 TYPE 2 DIABETES MELLITUS WITH HYPERGLYCE 04/17/2016 ZORAN MCGUIRE L ORGANIZATIONAL PSYCHOLOGIST Ot E53.8 DEFICIENCY OF OTHER SPECIFIED B GROUP 04/17/2016 ZORAN MCGUIRE L ORGANIZATIONAL PSYCHOLOGIST Ot E55.9 VITAMIN D DEFICIENCY, UNSPECIFIED 04/17/2016 ZORAN MCGUIRE ORGANIZATIONAL PSYCHOLOGIST Ot E61.2 MAGNESIUM DEFICIENCY 04/22/2016 RICHARD GRIMALDO Jody Ot 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 04/22/2016 DILLANSEUNTRI Jody Ot C77.2 SECONDARY AND UNSP MALIGNANT NEOPLASM OF 04/22/2016 RICHARD GRIMALDO Jody Ot E03.9 HYPOTHYROIDISM, UNSPECIFIED 04/22/2016 RICHARD GRIMALDO Jody Ot Z79.899 OTHER LONGTERM (CURRENT) DRUG THERAPY 04/23/2016 RICHARD GRIMALDO Jody Ot A04.7 ENTEROCOLITIS DUE TO CLOSTRIDIUM DIFFICI 04/23/2016 RICHARD GRIMALDO N Ot 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 04/23/2016 DILLANSEUNTRI Jody Ot 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 04/23/2016 DILLANRICHARD Ot C77.3 SEC AND UNSP MALIG NEOPLASM OF AXILLA AN 04/23/2016 DILLANSEUNTRI Jody Ot E03.9 HYPOTHYROIDISM, UNSPECIFIED 04/23/2016 DILLAN, SEUNTRI N Ot K12.30 ORAL MUCOSITIS (ULCERATIVE), UNSPECIFIED 04/23/2016 RICHARD GRIMALDO N Ot R80.9 PROTEINURIA, UNSPECIFIED 04/23/2016 RICHARD GRIMALDO N Ot R82.90 UNSPECIFIED ABNORMAL FINDINGS IN URINE 04/23/2016 DILLAN, SEUNTRI Jody Ot Z51.11 ENCOUNTER FOR ANTINEOPLASTIC CHEMOTHERAP 04/23/2016 RICHARD GRIMALDO Ot Z79.899 OTHER LONGTERM (CURRENT) DRUG THERAPY 04/24/2016 DILLANRICHARD N Ot 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 04/24/2016 DILLAN, BOBAN N Ot C77.2 SECONDARY AND UNSP MALIGNANT NEOPLASM OF 04/24/2016 DILLAN BOBAN N Ot E03.9 HYPOTHYROIDISM, UNSPECIFIED 04/24/2016 DILLAN BOBAN N Ot 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 04/30/2016 DILLAN, BOBAN N Ot 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 04/30/2016 DILLAN, BOBAN N Ot C77.2 SECONDARY AND UNSP MALIGNANT NEOPLASM OF 04/30/2016 DILLAN, BOBAN N Ot E03.9 HYPOTHYROIDISM, UNSPECIFIED 04/30/2016 DILLAN, BOBAN N Ot Z79.899 OTHER LONGTERM (CURRENT) DRUG THERAPY 05/08/2016 DILLAN BOBAN N Ot 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 05/08/2016 DILLAN, BOBAN N Ot Z01.89 ENCOUNTER FOR OTHER SPECIFIED SPECIAL EX 05/14/2016 DILLAN BOBAN N Ot 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 05/14/2016 DILLAN, BOBAN N Ot C77.2 SECONDARY AND UNSP MALIGNANT NEOPLASM OF 05/14/2016 DILLAN BOBAN N Ot E03.9 HYPOTHYROIDISM, UNSPECIFIED 05/14/2016 DILLAN, BOBAN N Ot Z79.899 OTHER LONGTERM (CURRENT) DRUG THERAPY 05/28/2016 DILLAN, BOBAN N Ot 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 05/28/2016 DILLAN, BOBAN N Ot C77.2 SECONDARY AND UNSP MALIGNANT NEOPLASM OF 05/28/2016 DILLAN, BOBAN N Ot E03.9 HYPOTHYROIDISM, UNSPECIFIED 05/28/2016 DILLAN, BOBAN N Ot 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 06/12/2016 DILLAN, BOBAN N Ot 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 06/12/2016 DILLAN, BOBAN N Ot C77.2 SECONDARY AND UNSP MALIGNANT NEOPLASM OF 06/12/2016 DILLAN, BOBAN N Ot E03.9 HYPOTHYROIDISM, UNSPECIFIED 06/12/2016 DILLAN, BOBAN N Ot Z79.899 OTHER LONGTERM (CURRENT) DRUG THERAPY 06/12/2016 DILLAN, BOBAN N Ot 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 06/12/2016 RICHARD GRIMALDO N Ot C77.2 SECONDARY AND UNSP MALIGNANT NEOPLASM OF 06/12/2016 RICHARD GRIMALDO N Ot E03.9 HYPOTHYROIDISM, UNSPECIFIED 06/12/2016 RICHARD GRIMALDO N Ot 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 06/19/2016 SAMSON MILLER S ORGANIZATIONAL PSYCHOLOGIST Ot 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 06/19/2016 MILLERSAMSON Loredo S ORGANIZATIONAL PSYCHOLOGIST Ot C77.8 SEC AND UNSP MALIG NEOPLASM OF NODES OF 07/10/2016 MILLER, HILAH S ORGANIZATIONAL PSYCHOLOGIST Ot 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 07/10/2016 MILLER, SAMSON S ORGANIZATIONAL PSYCHOLOGIST Ot C77.8 SEC AND UNSP MALIG NEOPLASM OF NODES OF 07/10/2016 RICHARD GRIMALDO N Ot 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 07/10/2016 RICHARD GRIMALDO N Ot C77.2 SECONDARY AND UNSP MALIGNANT NEOPLASM OF 07/10/2016 RICHARD GRIMALDO N Ot E03.9 HYPOTHYROIDISM, UNSPECIFIED 07/10/2016 RICHARD GRIMALDO N Ot 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 07/22/2016 RICHARD GRIMALDO N Ot 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 07/22/2016 RICHARD GRIMALDO N Ot C77.2 SECONDARY AND UNSP MALIGNANT NEOPLASM OF 07/22/2016 RICHARD GRIMALDO N Ot E03.9 HYPOTHYROIDISM, UNSPECIFIED 07/22/2016 RICHARD GRIMALDO N Ot Z79.899 OTHER LONGTERM (CURRENT) DRUG THERAPY 07/23/2016 RICHARD GRIMALDO N Ot 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 07/23/2016 RICHARD GRIMALDO N Ot 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 07/23/2016 RICHARD GRIMALDO N Ot C77.2 SECONDARY AND UNSP MALIGNANT NEOPLASM OF 07/23/2016 DILLAN RICHADR N Ot C77.3 SEC AND UNSP MALIG NEOPLASM OF AXILLA AN 07/23/2016 RICHARD GRIMALDO N Ot E03.9 HYPOTHYROIDISM, UNSPECIFIED 07/23/2016 RICHARD GRIMALDO N Ot Z51.11 ENCOUNTER FOR ANTINEOPLASTIC CHEMOTHERAP 07/23/2016 DILLAN RICHARD N Ot 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 07/28/2016 RICHARD GRIMALDO Ot 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 07/28/2016 RICHARD GRIMALDO Ot 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 07/28/2016 RICHARD GRIMALDO N Ot C77.2 SECONDARY AND UNSP MALIGNANT NEOPLASM OF 07/28/2016 RICHARD GRIMALDO Ot C77.3 SEC AND UNSP MALIG NEOPLASM OF AXILLA AN 07/28/2016 RICHARD GRIMALDO Ot E03.9 HYPOTHYROIDISM, UNSPECIFIED 07/28/2016 RICHARD GRIMALDO N Ot Z51.11 ENCOUNTER FOR ANTINEOPLASTIC CHEMOTHERAP 07/28/2016 RICHARD GRIMALDO N Ot 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 08/07/2016 RICHARD GRIMALDO Ot 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 08/07/2016 IRCHARD GRIMALDO N Ot C77.2 SECONDARY AND UNSP MALIGNANT NEOPLASM OF 08/07/2016 RICHARD GRIMALDO Ot E03.9 HYPOTHYROIDISM, UNSPECIFIED 08/07/2016 RICHARD GRIMALDO N Ot Z45.2 ENCOUNTER FOR ADJUSTMENT AND MANAGEMENT 08/07/2016 RICHARD GRIMALDO N Ot Z79.899 OTHER LONGTERM (CURRENT) DRUG THERAPY 09/10/2016 RICHARD GRIMALDO Ot 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 09/10/2016 RICHARD GRIMALDO N Ot C77.2 SECONDARY AND UNSP MALIGNANT NEOPLASM OF 09/10/2016 RICHARD GRIMALDO Ot E03.9 HYPOTHYROIDISM, UNSPECIFIED 09/10/2016 RICHARD GRIMALDO N Ot Z45.2 ENCOUNTER FOR ADJUSTMENT AND MANAGEMENT 09/10/2016 RICHARD GRIMALDO N Ot 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 09/18/2016 BILLY VALLE MD Ot M79.622 PAIN IN LEFT UPPER ARM 09/18/2016 BILLY VALLE MD Ot R51 HEADACHE 09/18/2016 BILLY VALLE MD Ot R68.84 JAW PAIN Procedures Code Description Performed By Performed On [id number] 08/26/2015 [id number] 08/26/2015 [id number] 10/19/2015 [id number] 10/19/2015 [id number] 10/30/2015 Results Test Result Range Methicillin resistant Staphylococcus aureus (MRSA) screening culture - 13:15 Methicillin resistant Staphylococcus aureus (MRSA) screening culture NEG NRG Capillary blood glucose measurement by glucometer (mass/volume) - 12/05/15 13: 20 Capillary blood glucose measurement by glucometer (mass/volume) 110 mg/dL 70-110 Clostridium difficile detection - 02/06/16 10:30 C DIFF MOLECULAR RESULT Positive for toxigenic C diff by DNA amplification NRG CALL POSITIVES (F1 HELP) [facility] [id number] 02/05 13:35 NRG Bacterial urine culture - 02/28/16 14:56 Bacterial urine culture [id number] NRG COLONY COUNT <10,000 NRG FTX;REPORTABLE SENSITIVITIES REPORTED 03/01 10:00 [facility] Bacterial susceptibility panel - 02/28/16 14:56 Gentamicin susceptibility test by minimum inhibitory concentration S NRG Vancomycin susceptibility test by minimum inhibitory concentration 1 NRG Levofloxacin susceptibility test by minimum inhibitory concentration 0.5 NRG Tetracycline susceptibility test by minimum inhibitory concentration >= NRG Ampicillin susceptibility test by minimum inhibitory concentration <= NRG Nitrofurantoin susceptibility test by minimum inhibitory concentration <= NRG Linezolid susceptibility test by minimum inhibitory concentration 2 [facility] Bacterial susceptibility panel - 02/28/16 14:56 Gentamicin susceptibility test by minimum inhibitory concentration <= NRG Trimethoprim/sulfamethoxazole susceptibility test by minimum inhibitoryconcentration <= NRG Ampicillin susceptibility test by minimum inhibitory concentration >= NRG Tobramycin susceptibility test by minimum inhibitory concentration <= NRG Cefazolin susceptibility test by minimum inhibitory concentration <= NRG Ceftriaxone susceptibility test by minimum inhibitory concentration <= NRG Ampicillin/sulbactam susceptibility test by minimum inhibitory concentration 16 NRG Piperacillin/tazobactam susceptibility test by minimum inhibitory concentration <= NRG Ciprofloxacin susceptibility test by minimum inhibitory concentration <= NRG Meropenem susceptibility test by minimum inhibitory concentration <= NRG Nitrofurantoin susceptibility test by minimum inhibitory concentration <= NRG Aztreonam susceptibility test by minimum inhibitory concentration <= NRG Extended spectrum beta lactamase (ESBL) producing bacteria susceptibility test by minimum inhibitory concentration - [facility] Bacterial susceptibility panel - 02/28/16 14:56 Gentamicin susceptibility test by minimum inhibitory concentration <= NRG Trimethoprim/sulfamethoxazole susceptibility test by minimum inhibitoryconcentration <= NRG Ampicillin susceptibility test by minimum inhibitory concentration >= NRG Tobramycin susceptibility test by minimum inhibitory concentration <= NRG Cefazolin susceptibility test by minimum inhibitory concentration <= NRG Ceftriaxone susceptibility test by minimum inhibitory concentration <= NRG Ampicillin/sulbactam susceptibility test by minimum inhibitory concentration 4 NRG Piperacillin/tazobactam susceptibility test by minimum inhibitory concentration <= NRG Ciprofloxacin susceptibility test by minimum inhibitory concentration <= NRG Meropenem susceptibility test by minimum inhibitory concentration <= NRG Nitrofurantoin susceptibility test by minimum inhibitory concentration 64 NRG Aztreonam susceptibility test by minimum inhibitory concentration <= NRG Extended spectrum beta lactamase (ESBL) producing bacteria susceptibility test by minimum inhibitory concentration - NRG Magnesium - 03/26/16 12:19 Magnesium 2.0 mg/dL 1.8-2.4 THYROID STIMULATING HORMONE - 03/26/16 12:19 THYROID STIMULATING HORMONE 2.45 u[iU]/mL 0.35-4.94 Serum or plasma thyroxine (T4) free measurement (mass/volume) - 03/26/16 12:19 Serum or plasma thyroxine (T4) free measurement (mass/volume) 0.99 ng/dL 0.70-1.48 Hemoglobin A1c - 03/26/16 12:19 Hemoglobin A1c 6.1 % 4.5-6.2 Total triiodothyronine (T3) measurement - 03/26/16 12:19 Total triiodothyronine (T3) measurement 1.1 % 0.6-1.8 Cyanocobalamin measurement - 03/26/16 12:19 Vitamin B12 527 pg/mL 200-1000 25-hydroxyvitamin D measurement - 03/26/16 12:19 25-hydroxy vitamin D measurement 44 % 30- 100 Encounters ACCT No. Visit Date/Time Discharge Status Pt. Type Provider Facility Loc./Unit Complaint [id number] 06/25/2016 09:23:00 2016 00:01:00 DIS Outpatient RICHARD GRIMALDO [facility] ONC [id number] 04/16/2016 08:51:00 2016 00:01:00 DIS Outpatient RICHARD GRIMALDO [facility] ONC [id number] 01/16/2016 12:55:00 2015 10:15:00 DIS Outpatient RICHARD GRIMALDO [facility] ONC [id number] 12/05/2015 12:46:00 2015 17:54:00 DIS [facility] [id number] 12/03/2015 06:13:00 2015 13:05:00 DIS Outpatient ANDREI HERNANDEZ MD [facility] PREOP COLON CANCER [id number] 10/29/2015 15:35:00 2015 15:30:00 DIS Inpatient ANDREI HERNANDEZ MD [facility] 4TH NAUSEA/VOMITING,ABD PAIN [id number] 10/19/2015 08:16:00 2015 17:40:00 DIS Inpatient ANDREI HERNANDEZ MD [facility] 4TH COLON CANCER [id number] 10/08/2015 15:07:00 2015 16:08:00 DIS Outpatient ANDREI HERNANDEZ MD [facility] PREOP COLON CANCER [id number] 10/02/2015 08:59:00 2015 19:00:00 DIS Outpatient KATHY BAILON FACC, TOM ORBB CCDS [facility] CATH ABNORMAL STRESS TEST, HTN, OBESITY, DM [id number] 08/30/2015 09:20:00 2015 11:46:00 DIS Inpatient DEBI LINK DO [facility] 4TH SWB-cancer, weakness [id number] 08/25/2015 07:00:00 2015 09:06:00 DIS Inpatient DEBI LINK DO [facility] CSD HEADACHE,CHEST PAIN [id number] 08/23/2015 10:21:00 2015 14:38:00 DIS Outpatient BILLY VALLE MD [facility] ER HEAD AND LEFT ARM PAIN [id number] 07/19/2015 13:45:00 2015 08:05:[address] APRN [facility] REHAB S/P LMF LRF RELEASE [id number] 10/18/2014 10:00:00 2014 23:59:59 CLS Preadmit ZORAN MCGUIRE ORGANIZATIONAL PSYCHOLOGIST [facility] CARD AFIB [id number] 07/19/2014 09:59:00 2014 00:01:00 DIS Outpatient ZORAN MCGUIRE ORGANIZATIONAL PSYCHOLOGIST [facility] CARD AFIB [id number] 11/16/2013 09:45:00 2013 23:59:59 CLS Outpatient ZORAN MCGUIRE ORGANIZATIONAL PSYCHOLOGIST [facility] CARD HISTORY OF AFIB [id number] 07/29/2013 20:32:00 2013 12:15:00 DIS Inpatient GRACIELA MCGUIRE DO [facility] CSD CHEST PAIN, NEW ONSET AFIB, UTI [id number] 01/20/2013 14:01:00 2012 23:59:59 CLS Outpatient ZORAN MCGUIRE ORGANIZATIONAL PSYCHOLOGIST [facility] CARD LT CALF PAIN,MURMUR [id number] 10/22/2012 06:49:00 2012 23:59:59 CLS Outpatient ZORAN MCGUIRE ORGANIZATIONAL PSYCHOLOGIST [facility] RAD DIZZINESS, FATIGUE [id number] 10/30/2016 09:30:00 PEN Preadmit DAVID BAILON, ANDREI Rao [facility] ENDO HX ADENOCARCINOMA; EPIGASTRIC PAIN [id number] 10/16/2016 10:25:00 ACT Outpatient RICHARD GRIMALDO [facility] ONC [id number] 06/18/2016 09:30:00 ACT Outpatient SAMSON MILLER ORGANIZATIONAL PSYCHOLOGIST [facility] RAD COLON CA [id number] 04/01/2016 09:56:00 ACT Outpatient RICHARD GRIMALDO [facility] RAD COLON CA [id number] 03/26/2016 12:10:00 ACT Outpatient ZORAN MCGUIRE ORGANIZATIONAL PSYCHOLOGIST [facility] LAB [id number] 12/11/2015 08:58:00 ACT Outpatient SAMSON MILLER ORGANIZATIONAL PSYCHOLOGIST [facility] ONC [id number] 12/04/2015 08:31:00 ACT Outpatient RICHARD GRIMALDO [facility] RAD COLON CANCER [id number] 09/12/2015 13:08:00 ACT Outpatient DAVID BAILON, ANDREI Rao [facility] RAD COLON CA WITH METS,SUPRACLAVICLAR L SIDE NECK LYMP [id number] 09/11/2015 06:46:00 ACT Outpatient GRACIELA MCGUIRE DO [facility] CARD CHEST PAIN [id number] 09/04/2015 11:02:00 ACT Outpatient DEBI LINK DO [facility] RAD COLON MASS [id number] 08/20/2015 10:31:00 ACT Outpatient ZORAN MCGUIRE [facility] RAD ABD PAIN, FEVER [id number] 07/13/2012 10:02:00 Document Registration [id number] 06/05/2011 05:51:00 Document Registration [id number] 05/29/2011 08:04:00 Document Registration [id number] 04/30/2011 07:14:00 Document Registration [id number] 04/29/2011 07:56:00 Document Registration [id number] 03/17/2011 14:19:00 Document Registration [id number] 04/03/2010 19:34:00 Document Registration [id number] 03/07/2010 20:24:00 Document Registration [id number] 08/31/2009 09:27:00 Document Registration [id number] 07/17/2009 13:29:00 Document Registration [id number] 07/13/2009 06:57:00 Document Registration
[2016-10-29] MEDS ORDERED: HURRICAINE EXT TUBE (BENZOCAINE) XX PRN (07:45)
[2016-10-29 07:48] VITALS: BP 134/60
[2016-10-29] MEDS ORDERED: MIDAZOLAM 2 MG/2 ML (VERSED) VIAL ONE ×4 (08:23→08:24)
[2016-10-29] MEDS ORDERED: fentaNYL INJECTION 100 MCG/2 ML AMP ONE ×2 (08:23)
[2016-10-29] MEDS ORDERED: HURRICAINE EXT TUBE (BENZOCAINE) ONE (08:24)
[2016-10-29] MEDS: fentaNYL INJECTION 100 MCG/2 ML AMP IVP PRN ×2 (09:06→09:08)
[2016-10-29] MEDS: MIDAZOLAM 2 MG/2 ML (VERSED) VIAL IVP PRN ×2 (09:07→09:16)
--- NOTE | 2016-10-29 09:36 | Conscious Sedation/ASA ---
Conscious Sedation Pre-Proced Time Reviewed: 08:17 ASA Class: 2 Airway Mallampati Classification: (qagan tayagungin appropriate class) I. II. III, IV Lungs Heart ASA score ASA 1: a normal healthy patient ASA 2: a patient with a mild systemic disease (mid diabetes, controlled hypertension, obesity ASA 3: a patient with a severe systemic disease that limits activity (angina , COPD, prior Myocardial infarction) ASA 4: a patient with an incapacitating disease that is a constant threat to life (CHF, renal failure) ASA 5: a moribund patient not expected to survive 24 hrs. (ruptured aneurysm) ASA 6: a declared brain patient whose organs are being harvested. For emergent operations, add the letter E after the classification Grade 2 Sedation Plan: Discussed options with patient/fam Note The patient is an appropriate candidate to undergo the planned procedure, sedation, and anesthesia. The patient immediately re-assessed prior to indication. ANDREI HERNANDEZ MD Oct 29, 2016 9:36 am
--- NOTE | 2016-10-29 09:40 | Endo Procedure Record ---
Endo Procedure Report Date of Procedure Oct 29, 2016 Surgeon (s) ANDREI HERNANDEZ MD Post Procedure/Op Diagnosis mild distal gastritis and inflamed gastroesophageal junction on upper endoscopy. Normal colonoscopy up to ileo-colic anastomosis Procedure Performed 1.upper GI endoscopy with antral biopsy. [place] cytology and biopsy of GE junction 2. Colonoscopy to ileal-colic anastomosis Description of Procedure Anesthesia Type: Conscious Sedation Estimated blood loss (mL): minimal Specimen(s) collected/removed antral mucosa. Cytology and biopsy from GE junction Description of the Procedure upper GI endoscopy/biopsy: She was placed in left lateral decubitus position and her vital signs were monitored. Conscious sedation was achieved using Versed and fentanyl. The flexible gastroscope was introduced down the esophagus , past the stomach, into the proximal duodenum. Findings: Esophagus: Quite tortuous with inflamed GE junction. [place] cytology and biopsy were obtained. Stomach: Mild distal gastritis. Biopsy for H. pylori was obtained. First and second parts of duodenum were normal Colonoscopy: Digital rectal examination was unremarkable. The colonoscope was then introduced into the rectum and advanced to the ileo-colic anastomosis. The scope was then withdrawn slowly and the mucosa examined in a systematic fashion. There was no abnormality. She tolerated the procedures well and was taken back to the nursing area in a stable condition. Impression: Epigastric pain. Inflamed GE junction. Mild distal gastritis. Cytology and biopsy pending. 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 No recurrent polyps. Findings of the Procedure see description Copy Copies To 1: ASHISH DOAN MD Copies To 2: RICHARD GRIMALDO XAVIER M MD Oct 29, 2016 09:40
--- NOTE | 2016-10-29 09:42 | Discharge Inst-Simple/Standard ---
Discharge Inst-Standard Discharge Medications New, Converted or Re-Newed RX: Other Patient Instructions/Follow Up Plan of Care/Instructions/FU: ffollow-up with Dr. Gunn as scheduled before Activity as Tolerated: Yes Discharge Diet: ADA ANDREI Erickson MD Oct 29, 2016 9:42 am
--- NOTE | 2016-10-29 09:44 | Endo Procedure Record ---
Endo Procedure Report Date of Procedure Oct 29, 2016 Surgeon (s) ANDERI HERNANDEZ MD Post Procedure/Op Diagnosis mild distal gastritis and inflamed gastroesophageal junction on upper endoscopy. Normal colonoscopy up to ileo-colic anastomosis Procedure Performed 1.upper GI endoscopy with antral biopsy. [place] cytology and biopsy of GE junction 2. Colonoscopy to ileal-colic anastomosis Description of Procedure Anesthesia Type: Conscious Sedation Estimated blood loss (mL): minimal Specimen(s) collected/removed antral mucosa. Cytology and biopsy from GE junction Description of the Procedure upper GI endoscopy/biopsy: She was placed in left lateral decubitus position and her vital signs were monitored. Conscious sedation was achieved using Versed and fentanyl. The flexible gastroscope was introduced down the esophagus , past the stomach, into the proximal duodenum. Findings: Esophagus: Quite tortuous with inflamed GE junction. [place] cytology and biopsy were obtained. Stomach: Mild distal gastritis. Biopsy for H. pylori was obtained. First and second parts of duodenum were normal Colonoscopy: Digital rectal examination was unremarkable. The colonoscope was then introduced into the rectum and advanced to the ileo-colic anastomosis. The scope was then withdrawn slowly and the mucosa examined in a systematic fashion. There was no abnormality. She tolerated the procedures well and was taken back to the nursing area in a stable condition. Impression: Epigastric pain. Inflamed GE junction. Mild distal gastritis. Cytology and biopsy pending. 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 No recurrent polyps. Findings of the Procedure see description ANDREI HERNANDEZ MD Oct 29, 2016 9:44 am
[2016-10-29 09:50] VITALS: BP 116/54
[2016-10-29 10:25] VITALS: BP 106/47
[2016-10-29 10:47] VITALS: BP 106/47
== END 2016-10-29 10:48 | disposition home or self-care (01) ==
LOC: ENDO 07:29
PROVIDERS: ATTEND Surgery
DX: K29.70 Gastritis, unspecified, without bleeding (principal); C18.4 Malignant neoplasm of transverse colon; C77.2 Secondary and unspecified malignant neoplasm of intra-abdominal lymph nodes; J45.909 Unspecified asthma, uncomplicated; I10 Essential (primary) hypertension; E78.5 Hyperlipidemia, unspecified; E11.9 Type 2 diabetes mellitus without complications
CPT/HCPCS: 82962; 88112; 88305

== ENCOUNTER → 2016-11-24 | Outpatient (CLI) | payer MEDICARE, OTHER ==
[2016-11-24 11:06] LABS: MAGNESIUM 2.2 MG/DL (1.8-2.4)
[2016-11-24 11:39] LABS: THYROID STIMULATING HORMONE 1.23 UIU/ML (0.35-4.94)
== END ==
LOC: LAB 10:11
PROVIDERS: ATTEND Nurse Practitioner Family
DX: R53.83 Other fatigue (principal); R73.03 Prediabetes; E55.9 Vitamin D deficiency, unspecified; E53.8 Deficiency of other specified B group vitamins; E83.42 Hypomagnesemia
CPT/HCPCS: 36415; 82306; 82607; 83036; 83735; 84439; 84443; 84480

== ENCOUNTER → 2016-12-12 | Outpatient (CLI) | payer MEDICARE, OTHER ==
[~2016-12-12] MED LIST changes: +BARIUM SUSPENSION 2.1% (VANILLA SILQ) 450 ML PO ONE; +CATHETER FLUSH 10 ML SYR IV PRN; +CEFD300C3 PO; +CEPH-507 PO; +CEPH500T PO; +CHOL20003 PO; +IOHEXOL 350 MG/ML 100 ML (OMNIPAQUE 350) VIAL IV ONE; -METO-272 PO; +METO-370 PO; +NS 100 ML (IVPB) BAG IV ONE; +OMEP20CA12 PO; +ONDA8TAB9 PO; +OXYC-197 PO
--- NOTE | 2016-12-12 14:05 | Diagnostic Imaging Report ---
PROCEDURE: CT chest with contrast, CT abdomen and pelvis with and without contrast. TECHNIQUE: Pre and post intravenous contrast axial imaging of the abdomen and pelvis and post contrast axial imaging of the chest were performed. INDICATION: Right upper quadrant and right flank pain. History of colon cancer. COMPARISON: Exam compared to 06/18/2016. FINDINGS: CHEST: Some zones of linear subpleural scarring are present as chronic findings. No focal alveolar consolidation and no discrete soft tissue density, lung mass, or suspicious nodularity. There is no thoracic lymphadenopathy, effusion, or pneumothorax. Hiatal hernia is chronic. ABDOMEN AND PELVIS: There is a [id number] zone of increased focal enhancement in the right hepatic lobe at the dome posteriorly, only seen at the dynamic images. Its imperceptibly prior to contrast and on the delayed images as well as its absence of mass effect felt to confirm focal perfusion anomaly. No identifiable liver mass. The gallbladder is absent with no pathological bile duct dilatation. There has been a development of a large left adrenal mass highly suggestive of metastatic disease. It measures 5.8 x 4.7 cm, and somewhat heterogeneous thickening of the right adrenal gland is a new finding measuring a maximal transverse diameter of 1.7 cm. A new lymph node just above the level of the celiac posterior to the stomach at the midline measures 2.3 x 1.0 cm. The pancreas itself appeared unremarkable. There is some new mild hazy induration and increased density of the fat along the mesenteric root which now contains multiple small nodules suspect for metastatic disease; the largest of these nodules measuring a diameter of 1.2 cm at the level of the renal mid poles near the midline. More caudally at and below the level of the aorta's bifurcation, more substantial masses within the mesentery have developed measuring a maximum 2.1 x 1.3 cm. There is a small volume of pelvic free fluid having recurred in the interim. There is no bowel, biliary, or urinary tract obstruction. No loculated fluid collection, abscess, or free air. There is no suspicious osseous lesion. IMPRESSION: Chest: Stable chest. No findings of thoracic metastatic disease. Abdomen and Pelvis: New bilateral adrenal masses, very large on the left, highly suggestive of metastatic disease. Recurrence of infiltration and nodularity with masses along the mesenteric root is presumptively recurrence of metastatic disease. Recurrence of small volume pelvic free fluid without loculated collection. Likely incidental perfusion anomaly in the right hepatic lobe posteriorly with no convincing evidence for liver mass. Small hepatogastric lymph node in the upper abdomen is a new finding as well. Dictated by: Dictated on workstation # [id number]
== END ==
LOC: RAD 10:18
PROVIDERS: ATTEND Internal Medicine Hematology & Oncology
DX: E27.9 Disorder of adrenal gland, unspecified (principal); K76.9 Liver disease, unspecified; R59.0 Localized enlarged lymph nodes; C18.4 Malignant neoplasm of transverse colon; C77.8 Secondary and unspecified malignant neoplasm of lymph nodes of multiple regions
CPT/HCPCS: 71260; 74178

== ENCOUNTER 2017-01-14 11:22 | Outpatient (RCR) | payer MEDICARE, OTHER ==
[2016-11-24 10:27] LABS: BASOPHILS % (AUTO) 0 % (0-10); EOSINOPHILS # (AUTO) 0.2 10^3/uL (0.0-0.3); EOSINOPHILS % (AUTO) 3 % (0-10); LYMPHOCYTES # (AUTO) 1.7 X 10^3 (1.0-4.0); LYMPHOCYTES % (AUTO) 23 % (12-44); MEAN CORPUSCULAR HEMOGLOBIN 30 PG (25-34); MEAN CORPUSCULAR HGB CONC 32 G/DL (32-36); MEAN CORPUSCULAR VOLUME 94 FL (80-99); MEAN PLATELET VOLUME 9.9 FL (7.4-10.4); MONOCYTES # (AUTO) 0.6 X 10^3 (0.0-1.0); MONOCYTES % (AUTO) 8 % (0-12); NEUTROPHILS # (AUTO) 4.9 X 10^3 (1.8-7.8); NEUTROPHILS % (AUTO) 66 % (42-75); PLATELET COUNT 257 10^3/uL (130-400); RED CELL DISTRIBUTION WIDTH 14.3 % (10.0-14.5); WHITE BLOOD COUNT 7.4 10^3/uL (4.3-11.0)
[2016-11-24 11:14] LABS: ALBUMIN 3.9 GM/DL (3.2-4.5); BILIRUBIN,TOTAL 0.4 MG/DL (0.1-1.0); CALCIUM 9.5 MG/DL (8.5-10.1); CREATININE SERUM 1.04 MG/DL (0.60-1.30); TOTAL PROTEIN 7.8 GM/DL (6.4-8.2)
[2016-12-15 14:32] LABS: BASOPHILS # (AUTO) 0.1 10^3/uL (0.0-0.1); BASOPHILS % (AUTO) 1 % (0-10); EOSINOPHILS # (AUTO) 0.3 10^3/uL (0.0-0.3); EOSINOPHILS % (AUTO) 3 % (0-10); LYMPHOCYTES # (AUTO) 1.8 X 10^3 (1.0-4.0); LYMPHOCYTES % (AUTO) 21 % (12-44); MEAN CORPUSCULAR HEMOGLOBIN 30 PG (25-34); MEAN CORPUSCULAR HGB CONC 32 G/DL (32-36); MEAN CORPUSCULAR VOLUME 93 FL (80-99); MEAN PLATELET VOLUME 10.3 FL (7.4-10.4); MONOCYTES # (AUTO) 0.7 X 10^3 (0.0-1.0); MONOCYTES % (AUTO) 8 % (0-12); NEUTROPHILS # (AUTO) 5.6 X 10^3 (1.8-7.8); NEUTROPHILS % (AUTO) 67 % (42-75); PLATELET COUNT 210 10^3/uL (130-400); RED CELL DISTRIBUTION WIDTH 14.7 % (10.0-14.5); WHITE BLOOD COUNT 8.4 10^3/uL (4.3-11.0)
[2016-12-15 14:55] LABS: ALBUMIN 4.2 GM/DL (3.2-4.5); BILIRUBIN,TOTAL 0.6 MG/DL (0.1-1.0); CALCIUM 9.8 MG/DL (8.5-10.1); CREATININE SERUM 1.08 MG/DL (0.60-1.30); POTASSIUM 4.4 MMOL/L (3.6-5.0); TOTAL PROTEIN 8.4 GM/DL (6.4-8.2)
[2016-12-24 13:40] LABS: BASOPHILS % (AUTO) 1 % (0-10); EOSINOPHILS # (AUTO) 0.2 10^3/uL (0.0-0.3); EOSINOPHILS % (AUTO) 3 % (0-10); LYMPHOCYTES # (AUTO) 1.7 X 10^3 (1.0-4.0); LYMPHOCYTES % (AUTO) 27 % (12-44); MEAN CORPUSCULAR HEMOGLOBIN 30 PG (25-34); MEAN CORPUSCULAR HGB CONC 32 G/DL (32-36); MEAN CORPUSCULAR VOLUME 93 FL (80-99); MEAN PLATELET VOLUME 10.3 FL (7.4-10.4); MONOCYTES # (AUTO) 0.6 X 10^3 (0.0-1.0); MONOCYTES % (AUTO) 10 % (0-12); NEUTROPHILS # (AUTO) 3.9 X 10^3 (1.8-7.8); NEUTROPHILS % (AUTO) 60 % (42-75); PLATELET COUNT 214 10^3/uL (130-400); RED BLOOD COUNT 3.63 10^6/uL (4.35-5.85); RED CELL DISTRIBUTION WIDTH 14.9 % (10.0-14.5); WHITE BLOOD COUNT 6.4 10^3/uL (4.3-11.0)
[2016-12-24 13:56] LABS: CALCIUM 9.3 MG/DL (8.5-10.1); CREATININE SERUM 1.01 MG/DL (0.60-1.30)
[2016-12-31 14:10] LABS: BASOPHILS % (AUTO) 0 % (0-10); EOSINOPHILS # (AUTO) 0.1 10^3/uL (0.0-0.3); EOSINOPHILS % (AUTO) 2 % (0-10); LYMPHOCYTES # (AUTO) 1.5 X 10^3 (1.0-4.0); LYMPHOCYTES % (AUTO) 29 % (12-44); MEAN CORPUSCULAR HEMOGLOBIN 30 PG (25-34); MEAN CORPUSCULAR HGB CONC 32 G/DL (32-36); MEAN CORPUSCULAR VOLUME 92 FL (80-99); MEAN PLATELET VOLUME 10.3 FL (7.4-10.4); MONOCYTES # (AUTO) 0.4 X 10^3 (0.0-1.0); MONOCYTES % (AUTO) 7 % (0-12); NEUTROPHILS # (AUTO) 3.3 X 10^3 (1.8-7.8); NEUTROPHILS % (AUTO) 62 % (42-75); PLATELET COUNT 228 10^3/uL (130-400); RED BLOOD COUNT 3.49 10^6/uL (4.35-5.85); RED CELL DISTRIBUTION WIDTH 14.3 % (10.0-14.5); WHITE BLOOD COUNT 5.3 10^3/uL (4.3-11.0)
[2016-12-31 14:26] LABS: ALBUMIN 3.7 GM/DL (3.2-4.5); BILIRUBIN,TOTAL 0.5 MG/DL (0.1-1.0); CALCIUM 9.1 MG/DL (8.5-10.1); POTASSIUM 4.2 MMOL/L (3.6-5.0); TOTAL PROTEIN 7.6 GM/DL (6.4-8.2)
[2017-01-07 11:08] LABS: BASOPHILS % (AUTO) 1 % (0-10); EOSINOPHILS # (AUTO) 0.1 10^3/uL (0.0-0.3); EOSINOPHILS % (AUTO) 3 % (0-10); LYMPHOCYTES # (AUTO) 1.7 X 10^3 (1.0-4.0); LYMPHOCYTES % (AUTO) 33 % (12-44); MEAN CORPUSCULAR HEMOGLOBIN 30 PG (25-34); MEAN CORPUSCULAR HGB CONC 32 G/DL (32-36); MEAN CORPUSCULAR VOLUME 93 FL (80-99); MEAN PLATELET VOLUME 9.5 FL (7.4-10.4); MONOCYTES # (AUTO) 0.4 X 10^3 (0.0-1.0); MONOCYTES % (AUTO) 9 % (0-12); NEUTROPHILS # (AUTO) 2.8 X 10^3 (1.8-7.8); NEUTROPHILS % (AUTO) 55 % (42-75); PLATELET COUNT 255 10^3/uL (130-400); RED BLOOD COUNT 3.45 10^6/uL (4.35-5.85); RED CELL DISTRIBUTION WIDTH 14.8 % (10.0-14.5); WHITE BLOOD COUNT 5.2 10^3/uL (4.3-11.0)
[2017-01-07 11:36] LABS: ALBUMIN 3.9 GM/DL (3.2-4.5); BILIRUBIN,TOTAL 0.4 MG/DL (0.1-1.0); CALCIUM 9.3 MG/DL (8.5-10.1); CREATININE SERUM 1.02 MG/DL (0.60-1.30); MAGNESIUM 2.1 MG/DL (1.8-2.4); POTASSIUM 4.2 MMOL/L (3.6-5.0); TOTAL PROTEIN 7.6 GM/DL (6.4-8.2)
[~2017-01-14] VITALS: Ht 165.1 cm; Wt 85.3 kg
[~2017-01-14 11:22] MED LIST changes: +ATROPINE INJ 0.4 MG/ML SDV (CANCER CENTER) INJ SCH; -BARIUM SUSPENSION 2.1% (VANILLA SILQ) 450 ML PO ONE; +BEVACIZUMAB INJECTION 400 MG in NS (IVPB) CANCER CENTER 100 ML IV SCH; -CATHETER FLUSH 10 ML SYR IV PRN; -CEFD300C3 PO; -CEPH-507 PO; -CEPH500T PO; -CHOL20003 PO; +D5W IV SCH; +FLUOROURACIL IV SCH; +FOSAPREPITANT DIMEGLUMINE 150 MG in NS (IVPB) CANCER CENTER ONLY 150 ML IV SCH; -IOHEXOL 350 MG/ML 100 ML (OMNIPAQUE 350) VIAL IV ONE; +IRINOTECAN HCL 300 MG in D5W 250 ML IVPB (CANCER CTR) 250 ML IV SCH; +IRINOTECAN HCL IV SCH; +LEUCOVORIN CALCIUM 400 MG in D5W 250 ML IVPB (CANCER CTR) 250 ML IV SCH; +METO-272 PO; -METO-370 PO; -NS 100 ML (IVPB) BAG IV ONE; +NS IV 1000 ML (CANCER CTR) IV SCH; +NS IV SCH; -OMEP20CA12 PO; -ONDA8TAB9 PO; -OXYC-197 PO; +PALONOSETRON 0.25 MG, DEXAMETHASONE 10 MG/NS 50 ML IVPB IV PRN
[2017-01-14 11:40] LABS: BASOPHILS % (AUTO) 1 % (0-10); EOSINOPHILS # (AUTO) 0.2 10^3/uL (0.0-0.3); EOSINOPHILS % (AUTO) 4 % (0-10); LYMPHOCYTES # (AUTO) 1.8 X 10^3 (1.0-4.0); LYMPHOCYTES % (AUTO) 38 % (12-44); MEAN CORPUSCULAR HEMOGLOBIN 30 PG (25-34); MEAN CORPUSCULAR HGB CONC 32 G/DL (32-36); MEAN CORPUSCULAR VOLUME 93 FL (80-99); MEAN PLATELET VOLUME 10.2 FL (7.4-10.4); MONOCYTES # (AUTO) 0.4 X 10^3 (0.0-1.0); MONOCYTES % (AUTO) 9 % (0-12); NEUTROPHILS # (AUTO) 2.4 X 10^3 (1.8-7.8); NEUTROPHILS % (AUTO) 49 % (42-75); PLATELET COUNT 244 10^3/uL (130-400); RED CELL DISTRIBUTION WIDTH 14.6 % (10.0-14.5); WHITE BLOOD COUNT 4.9 10^3/uL (4.3-11.0)
[2017-01-14 11:58] LABS: ALBUMIN 3.7 GM/DL (3.2-4.5); BILIRUBIN,TOTAL 0.2 MG/DL (0.1-1.0); CALCIUM 8.9 MG/DL (8.5-10.1); CREATININE SERUM 0.96 MG/DL (0.60-1.30); TOTAL PROTEIN 7.2 GM/DL (6.4-8.2)
== END 2017-01-17 | disposition home or self-care (01) ==
LOC: ONC 11:22
PROVIDERS: ATTEND Internal Medicine Hematology & Oncology
DX: Z51.11 Encounter for antineoplastic chemotherapy (principal); C18.4 Malignant neoplasm of transverse colon; C77.2 Secondary and unspecified malignant neoplasm of intra-abdominal lymph nodes; E03.9 Hypothyroidism, unspecified; Z79.899 Other long term (current) drug therapy
CPT/HCPCS: 36415; 36591; 80048; 80053; 82378; 83735; 85025; 96367; 96368; 96375; 96411; 96413; 99213

== ENCOUNTER 2017-01-27 21:30 | Emergency (ER) | payer MEDICARE, OTHER ==
[~2017-01-27] VITALS: Ht 167.6 cm; Wt 82.6 kg
[~2017-01-27 21:30] MED LIST changes: -ATROPINE INJ 0.4 MG/ML SDV (CANCER CENTER) INJ SCH; -BEVACIZUMAB INJECTION 400 MG in NS (IVPB) CANCER CENTER 100 ML IV SCH; -D5W IV SCH; -FLUOROURACIL IV SCH; -FOSAPREPITANT DIMEGLUMINE 150 MG in NS (IVPB) CANCER CENTER ONLY 150 ML IV SCH; -IRINOTECAN HCL 300 MG in D5W 250 ML IVPB (CANCER CTR) 250 ML IV SCH; -IRINOTECAN HCL IV SCH; -LEUCOVORIN CALCIUM 400 MG in D5W 250 ML IVPB (CANCER CTR) 250 ML IV SCH; -NS IV 1000 ML (CANCER CTR) IV SCH; -NS IV SCH; -PALONOSETRON 0.25 MG, DEXAMETHASONE 10 MG/NS 50 ML IVPB IV PRN
[2017-01-27] MEDS ORDERED: HYDROmorphone (DILAUDID) 2 MG/ML VIAL IVP PRN (21:45)
[2017-01-27] MEDS ORDERED: LACTATED RINGERS 1,000 ML IV SCH ×2 (21:45→23:00)
[2017-01-27] MEDS ORDERED: ONDANSETRON 4 MG/2 ML (SDV) Z0FRAN IVP ONE (21:45)
--- NOTE | 2017-01-27 21:56 | ED Abdominal Pain ---
General Chief Complaint: Abdominal/GI Problems Stated Complaint: ABDOMINAL PAIN Nursing Triage Note: ABDOMINAL PAIN, CONSTIPATION/DIARRHEA Sepsis Screen: No Definite Risk Source of Information: Patient Exam Limitations: No Limitations History of Present Illness Time Seen By Provider: 21:53 Initial Comments To ER with reports of 2 days worth of abdominal pain in the epigastric and suprapubic regions. She has had nausea but no vomiting. No fevers or chills. She reports that she is passing gas today. She had diarrhea 3 days ago and 2 days ago but none today. She is on chemotherapy every other Thursday (most recently 6 days ago) for metastatic colon cancer (to mesenteric root and bilateral adrenal glands L>R). She was admitted in August 2015 for chest pain and given Lovenox. This led to a GI bleed which prompted colonoscopy and EGD, a mass of the proximal transverse colon was found. She subsequently had a right hemicolectomy with anastomosis in 10-19-15 for this. It was initially recommended she undergo palliative chemotherapy but due to the persistent bleeding, a hemicolectomy was performed is my understanding. She denies any ofelia blood or melena in her stools yesterday or today. Surgeon is Dr. Hernandez , primary care is Dr. Horta, oncologist is Dr. Gunn. Timing/Duration: 1-2 Days (The) Severity/Quality: Moderate Location: Generalized Abdomen Activities at Onset: None Associated Symptoms: Nausea/Vomiting Allergies and Home Medications Allergies Coded Allergies: indomethacin (Verified Adverse Reaction, Mild, HEAD ACHE, NIGHTMARES, 10/28) Home Medications Cholecalciferol (Vitamin D3) 2,000 Unit Capsule, 2,000 UNIT PO DAILY, #0 Prescribed by: MARIE ROBLERO on 12/05/15 1447 Furosemide 40 Mg Tablet, 20 MG PO DAILY PRN for FLUID RETENTION, (Reported) TAKES 1/2 OF A (40 MG) TABLET Levothyroxine Sodium 75 Mcg Tablet, 75 MCG PO DAILY, (Reported) Lisinopril 20 Mg Tablet, 20 MG PO DAILY, (Reported) Lorazepam 1 Mg Tablet, 0.5-1 MG PO HS, (Reported) TAKES 1/2 TO 1 (1MG) TABLET Metoprolol Succinate 50 Mg Tab.er.24h, 50 MG PO DAILY, (Reported) Ondansetron 8 Mg Tab.rapdis, 8 MG PO Q6H PRN for NAUSEA/VOMITING-1ST LINE, #14 Prescribed by: CORINNE CENTENO on 01/27/17 2322 Oxycodone HCl/Acetaminophen 1 Each Tablet, 1 EACH PO Q4H PRN for PAIN-SEVERE, # 10 Prescribed by: CORINNE CENTENO on 01/27/17 2322 Potassium Gluconate 99 Mg Tablet, 99 MG PO DAILY, (Reported) Simvastatin 10 Mg Tablet, 10 MG PO HS, (Reported) Ubidecarenone 100 Mg Capsule, 100 MG PO DAILY, (Reported) Review of Systems Constitutional: see HPI EENTM: No Symptoms Reported Respiratory: No Symptoms Reported Cardiovascular: No Symptoms Reported Gastrointestinal: See HPI, Abdominal Pain Genitourinary: No Symptoms Reported Musculoskeletal: no symptoms reported Skin: no symptoms reported Psychiatric/Neurological: No Symptoms Reported Endocrine: No Symptoms Reported Hematologic/Lymphatic: No Symptoms Reported Past Lqmvvjk-Aojtty-Olojqf Hx Patient Social History Alcohol Use: Denies Use Recreational Drug Use: No Smoking Status: Never a Smoker Recent Foreign Travel: No Contact w/Someone Who Travel: No Recent Infectious Disease Expo: No Recent Hopitalizations: Yes Immunizations Up To Date Tetanus Booster (TDap): Less than 5yrs Seasonal Allergies Seasonal Allergies: No Surgeries History of Surgeries: Yes (HERNIA, CATARACTS, BOWEL RESECTION, ) Surgeries: Gallbladder, Hysterectomy Respiratory History of Respiratory Disorde: Yes Respiratory Disorders: Asthma Currently Using CPAP: No Currently Using BIPAP: No Cardiovascular History of Cardiac Disorders: Yes Cardiac Disorders: High Cholesterol, Hypertension Neurological History of Neurological Disord: Yes Neurological Disorders: Headaches /Migraines Reproductive System : No Hx Reproductive Disorders: No Sexually Transmitted Disease: No HIV/AIDS: No Female Reproductive Disorders: Denies SHOVEL LOADER OPERATOR History: Hysterectomy, Menopausal Genitourinary History of Genitourinary Disor: No Genitourinary Disorders: Kidney Stones, Renal Failure Gastrointestinal History of Gastrointestinal Di: Yes Gastrointestinal Disorders: Gastroesophageal Reflux, Hiatal Hernia Musculoskeletal History of Musculoskeletal Dis: No Endocrine History of Endocrine Disorders: Yes (STOPPED METFORMIN PER D/T KIDNEY FUNCTION) Endocrine Disorders: Hypothyroidsim, Diabetes, Non-Insulin dep HEENT History of HEENT Disorders: No Loss of Vision: Bilateral Hearing Impairment: Denies Cancer History of Cancer: Yes Cancer: Colon, Kidney Did You Recieve Any Treatments: Yes Type of Tx Receive: Chemotherapy Cancer Comment: LAST CHEMO 10/4/17 Psychosocial History of Psychiatric Problem: Yes (TAKES ATIVAN FOR SLEEP) Behavioral Health Disorders: Sleep Difficulties Integumentary History of Skin or Integumenta: No Blood Transfusions History of Blood Disorders: Yes (ANEMIA) Adverse Reaction to a Blood Tr: No (HAS HAD BLOOD WITH NO REACTION) Family Medical History Family Medial History: Cancer 03 MOTHER Congestive heart failure 09 SISTER Family history: Cardiovascular disease 03 FATHER 09 BROTHER OTHER CARDIOVASCULAR DISEASES Stroke 03 MOTHER Physical Exam Vital Signs VS - Last 72 Hours, by Label 01/27/17 21:43 Temp 97.0 Pulse 107 Resp 18 B/P (MAP) 147/92 Pulse Ox 96 O2 Delivery Room Air Capillary Refill : Less Than 3 Seconds General Appearance: WD/WN, no apparent distress HEENT: PERRL/EOMI, normal ENT inspection Neck: non-tender, full range of motion Respiratory: no respiratory distress, no accessory muscle use Gastrointestinal: normal bowel sounds, soft, tenderness Extremities: normal range of motion, non-tender Neurologic/Psychiatric: alert, normal mood/affect, oriented x 3 Skin: normal color, warm/dry Progress/Results/Core Measures Results/Orders Lab Results Laboratory Tests Test 01/27/17 22:05 Range/Units White Blood Count 5.1 4.3-11.0 10^3/uL Red Blood Count 4.23 L 4.35-5.85 10^6/uL Hemoglobin 12.8 # 11.5-16.0 G/DL Hematocrit 38 35-52 % Mean Corpuscular Volume 91 80-99 FL Mean Corpuscular Hemoglobin 30 25-34 PG Mean Corpuscular Hemoglobin Concent 33 32-36 G/DL Red Cell Distribution Width 15.4 H 10.0-14.5 % Platelet Count 325 130-400 10^3/uL Mean Platelet Volume 10.4 7.4-10.4 FL Neutrophils (%) (Auto) 45 42-75 % Lymphocytes (%) (Auto) 35 12-44 % Monocytes (%) (Auto) 18 H 0-12 % Eosinophils (%) (Auto) 2 0-10 % Basophils (%) (Auto) 1 0-10 % Neutrophils # (Auto) 2.3 1.8-7.8 X 10^3 Lymphocytes # (Auto) 1.8 1.0-4.0 X 10^3 Monocytes # (Auto) 0.9 0.0-1.0 X 10^3 Eosinophils # (Auto) 0.1 0.0-0.3 10^3/uL Basophils # (Auto) 0.0 0.0-0.1 10^3/uL Sodium Level 135 135-145 MMOL/L Potassium Level 4.2 3.6-5.0 MMOL/L Chloride Level 103 98-107 MMOL/L Carbon Dioxide Level 19 L 21-32 MMOL/L Anion Gap 13 5-14 MMOL/L Blood Urea Nitrogen 18 7-18 MG/DL Creatinine 1.32 H 0.60-1.30 MG/DL Estimat Glomerular Filtration Rate 39 BUN/Creatinine Ratio 14 Glucose Level 169 H 70-105 MG/DL Calcium Level 9.7 8.5-10.1 MG/DL Total Bilirubin 0.7 0.1-1.0 MG/DL Aspartate Amino Transf (AST/SGOT) 24 5-34 U/L Alanine Aminotransferase (ALT/SGPT) 25 0-55 U/L Alkaline Phosphatase 108 40-136 U/L Total Protein 8.1 6.4-8.2 GM/DL Albumin 4.0 3.2-4.5 GM/DL Lipase 10 8-78 U/L My Orders Orders - CORINNE CENTENO APRN Hydromorphone Injection (Dilaudid Inject (01/27/17 21:45) Lactated Ringers (Lr 1000 Ml Iv Solution (01/27/17 21:45) Cbc With Automated Diff (01/27/17 21:44) Comprehensive Metabolic Panel (01/27/17 21:44) Lipase (01/27/17 21:44) Ua Culture If Indicated (01/27/17 21:44) Ondansetron Injection (Zofran Injectio (01/27/17 21:45) Hydromorphone Injection (Dilaudid Inject (01/27/17 22:00) Ct Abdomen/Pelvis Wo (01/27/17 22:33) Lactated Ringers (Lr 1000 Ml Iv Solution (01/27/17 23:00) Rx-Oxycodone/Apap 5-325 Mg (Rx-Percocet (01/27/17 23:30) Rx-Ondansetron Po (Rx-Zofran Po) (01/27/17 23:23) Lipase (01/27/17 23:24) Amylase (01/27/17 23:24) Lipase (01/27/17 23:25) Amylase (01/27/17 23:25) Medications Given in ED Current Medications Medications Dose Ordered Sig/Miguel Route Start Time Stop Time Status Last Admin Dose Admin Hydromorphone HCl 0.5 mg ONCE ONCE IVP 01/27/17 22:00 01/27/17 22:01 DC 01/27/17 22:03 0.5 MG Ondansetron HCl 8 mg ONCE ONCE IVP 01/27/17 21:45 01/27/17 21:46 DC 01/27/17 22:03 8 MG Vital Signs/I&O Vital Sign - Last 12Hours 01/27/17 21:43 Temp 97.0 Pulse 107 Resp 18 B/P (MAP) 147/92 Pulse Ox 96 O2 Delivery Room Air Intake and Output 01/28/17 00:00 Intake Total 1000 ml Balance 1000 ml Blood Pressure Mean: 110 Departure Communication (Admissions) Progress Notes 225- after 8 mg of Zofran and 0.5 mg of IV Dilaudid patient's pain is well- controlled and her nausea is gone. Other than some acute renal insufficiency labs are unremarkable. She's had 1 liter of LR. If her CT fails to show any condition that needs admitted we will discharge to home as she does not take any pain medications at home so I will start her on Percocet. Will give an additional 500ml of LR. 2325- see the attached [facility] CT report. Impression Impression: Primary Impression: Metastatic colon cancer in female Additional Impression: Acute renal insufficiency Disposition: HOME, SELF-CARE Condition: Stable Departure-Patient Inst. Decision time for Depature: 22:59 Referrals: GRACIELA HORTA DO (PCP/Family) Primary Care Physician Patient Instructions: Colon and Rectal Cancer Add. Discharge Instructions: 1. Call Dr Rodriguez tomorrow to be seen 2. Return to ER for any concerns 3. Use the nausea and pain medication as directed All discharge instructions reviewed with patient and/or family. Voiced understanding. Scripts Oxycodone HCl/Acetaminophen (Percocet 5-325 mg Tablet) 1 Each Tablet 1 EACH PO Q4H Y for PAIN-SEVERE, #10 TAB Prov: CORINNE CENTENO PHOTOGRAPHIC PLATE MAKER 01/27/17 Ondansetron (Zofran Odt) 8 Mg Tab.rapdis 8 MG PO Q6H Y for NAUSEA/VOMITING-1ST LINE, #14 TAB Prov: CORINNE CENTENO APRN 01/27/17 Copy Copies To 1: ANDREI HERNANDEZ MD; RICHARD RODRIGUEZ; GRACIELA HORTA DO CORINNE CENTENO APRN Jan 27, 2017 21:56
[2017-01-27] MEDS ORDERED: HYDROmorphone (DILAUDID) 2 MG/ML VIAL IVP ONE (22:00)
[2017-01-27 22:13] LABS: BASOPHILS % (AUTO) 1 % (0-10); EOSINOPHILS # (AUTO) 0.1 10^3/uL (0.0-0.3); EOSINOPHILS % (AUTO) 2 % (0-10); LYMPHOCYTES # (AUTO) 1.8 X 10^3 (1.0-4.0); LYMPHOCYTES % (AUTO) 35 % (12-44); MEAN CORPUSCULAR HEMOGLOBIN 30 PG (25-34); MEAN CORPUSCULAR HGB CONC 33 G/DL (32-36); MEAN CORPUSCULAR VOLUME 91 FL (80-99); MEAN PLATELET VOLUME 10.4 FL (7.4-10.4); MONOCYTES # (AUTO) 0.9 X 10^3 (0.0-1.0); MONOCYTES % (AUTO) 18 % (0-12); NEUTROPHILS # (AUTO) 2.3 X 10^3 (1.8-7.8); NEUTROPHILS % (AUTO) 45 % (42-75); PLATELET COUNT 325 10^3/uL (130-400); RED BLOOD COUNT 4.23 10^6/uL (4.35-5.85); RED CELL DISTRIBUTION WIDTH 15.4 % (10.0-14.5); WHITE BLOOD COUNT 5.1 10^3/uL (4.3-11.0)
[2017-01-27 22:32] LABS: BILIRUBIN,TOTAL 0.7 MG/DL (0.1-1.0); CALCIUM 9.7 MG/DL (8.5-10.1); CREATININE SERUM 1.32 MG/DL (0.60-1.30); POTASSIUM 4.2 MMOL/L (3.6-5.0); TOTAL PROTEIN 8.1 GM/DL (6.4-8.2)
[2017-01-27] MEDS ORDERED: ONDA8TAB9 PO (23:22)
[2017-01-27] MEDS ORDERED: OXYC-197 PO (23:22)
[2017-01-27] MEDS ORDERED: RX-ONDANSETRON 4 MG ODT (ZOFRAN) PPK #4 PO STA (23:23)
[2017-01-27] MEDS ORDERED: RX-OXYCODONE/APAP 5-325 MG #4 TAB PK PO PRN (23:30)
[2017-01-27 23:40] LABS: AMYLASE 52 U/L (25-125); LIPASE 10 U/L (8-78)
[2017-01-28 00:11] LABS: KETONES,URINE 1+ (NEGATIVE); LEUKOCYTE ESTERASE ,URINE 3+ (NEGATIVE); NITRITE,URINE POSITIVE (NEGATIVE); PH,URINE 5 (5-9); PROTEIN,URINE 2+ (NEGATIVE); UROBILINOGEN,URINE 1 MG/DL (NORMAL)
[2017-01-28 00:25] LABS: BILIRUBIN,URINE 2+ (NEGATIVE); WBC,URINE 25-50 /HPF
[2017-01-28] MEDS ORDERED: CEPH500T PO (00:35)
[2017-01-28 00:38] VITALS: BP 121/55
--- NOTE | 2017-01-28 08:20 | Diagnostic Imaging Report ---
PROCEDURE: CT abdomen and pelvis without contrast. TECHNIQUE: Multiple contiguous axial images were obtained through the abdomen and pelvis without the use of intravenous contrast. INDICATION: Nausea, vomiting and diarrhea x2 days. Now with constipation. CORRELATION STUDY: 12/12/2016 FINDINGS: Fibrotic-type changes about the lung bases. Moderate-sized hiatal hernia is present. Some fluid in the lower esophagus and compressed stomach. Unenhanced liver, spleen, are unremarkable. Cholecystectomy changes with clips in the fossa. Slight thickening of the right adrenal gland is less pronounced. Left adrenal gland mass has shown interval decrease in size currently 2.9 x 2.4 cm, previously 5.8 x 4.7 cm. Slight haziness surrounding the pancreas. Kidneys with normal appearance. No calcification or obstruction. Mild wall calcification of the abdominal aorta is nonaneurysmal. Surgical changes of the prior bowel surgery are noted. Rather prominent fluid distended colonic segments are noted. Somewhat relatively decompressed and thickened sigmoid colon noted. Few colonic diverticuli are present. Few distended small bowel segments are noted as well. Appendix is not visualized. There is haziness about the central mesenteric again demonstrated with multiple areas of nodularity. The mesenteric nodules generally stable. In the pelvis, post hysterectomy changes are present. Urinary bladder relatively decompressed. IMPRESSION: 1. Postop change of the gastrointestinal tract. Rather prominent distended fluid-filled loops of predominantly colon to lesser degree small bowel. Asymmetric caliber change and thickening suggested about the sigmoid colon. Possibility of a partial obstruction in this area is not excluded, followup imaging as clinically warranted. 2. Possibility of mild pancreatitis not excluded. Correlation with laboratory evaluation. 3. Left adrenal gland mass persisting but overall decreased in size. Scattered prominent mesenteric lymph nodes generally stable. A preliminary report was provided by [facility]. Dictated by: Dictated on workstation # [id number]
[2017-01-29] MEDS ORDERED: OXYC-197 PO (16:19)
[2017-01-29] MEDS ORDERED: ONDA8TAB9 PO (16:19)
[2017-01-29] MEDS ORDERED: CHOL20003 PO (16:19)
[2017-01-29] MEDS ORDERED: CEPH-507 PO (16:19)
== END 2017-01-28 00:38 | disposition home or self-care (01) ==
LOC: EDUNIT# 21:30 → ER 21:31
DX: C18.9 Malignant neoplasm of colon, unspecified (principal); C79.01 Secondary malignant neoplasm of right kidney and renal pelvis; C79.02 Secondary malignant neoplasm of left kidney and renal pelvis; N17.9 Acute kidney failure, unspecified; J45.909 Unspecified asthma, uncomplicated; E78.00 Pure hypercholesterolemia, unspecified; I10 Essential (primary) hypertension; G43.909 Migraine, unspecified, not intractable, without status migrainosus; K21.9 Gastro-esophageal reflux disease without esophagitis; E03.9 Hypothyroidism, unspecified; E11.9 Type 2 diabetes mellitus without complications; Z87.442 Personal history of urinary calculi; Z82.49 Family history of ischemic heart disease and other diseases of the circulatory system; Z90.710 Acquired absence of both cervix and uterus; Z87.19 Personal history of other diseases of the digestive system
CPT/HCPCS: 36415; 74176; 80053; 81000; 82150; 83690; 85025; 87088; 87186

== ENCOUNTER → 2017-02-13 | Outpatient (CLI) | payer MEDICARE, OTHER ==
[~2017-02-13] MED LIST changes: +CEFD300C3 PO; +CEPH-507 PO; +CEPH500T PO; +CHOL20003 PO; +ONDA8TAB9 PO; +OXYC-197 PO
[2017-02-13 10:39] LABS: BILIRUBIN,URINE NEGATIVE (NEGATIVE); KETONES,URINE NEGATIVE (NEGATIVE); LEUKOCYTE ESTERASE ,URINE 1+ (NEGATIVE); NITRITE,URINE NEGATIVE (NEGATIVE); PH,URINE 6 (5-9); PROTEIN,URINE NEGATIVE (NEGATIVE); UROBILINOGEN,URINE NORMAL (NORMAL)
== END ==
LOC: LAB 10:24
PROVIDERS: ATTEND Nurse Practitioner Family
DX: R31.9 Hematuria, unspecified (principal)
CPT/HCPCS: 81000

== ENCOUNTER 2017-02-25 13:23 | Outpatient (RCR) | payer MEDICARE, OTHER ==
[~2017-02-25 13:23] MED LIST changes: +ATROPINE INJ 0.4 MG/ML SDV (CANCER CENTER) INJ SCH; +BEVACIZUMAB INJECTION 400 MG in NS (IVPB) CANCER CENTER 100 ML IV SCH; -FERR-74 PO; +FERR325T18 PO; +FLUOROURACIL IV SCH; +FOSAPREPITANT DIMEGLUMINE 150 MG in NS (IVPB) CANCER CENTER ONLY 150 ML IV SCH; +IRINOTECAN HCL 200 MG, IRINOTECAN HCL 50 MG in D5W 250 ML IVPB (CANCER CTR) 250 ML IV SCH; +LEUCOVORIN CALCIUM 400 MG in D5W 250 ML IVPB (CANCER CTR) 250 ML IV SCH; -METO-272 PO; +METO-370 PO; +NS IV 1000 ML (CANCER CTR) IV SCH; +NS IV SCH; +PALONOSETRON 0.25 MG, DEXAMETHASONE 10 MG/NS 50 ML IVPB IV PRN
[2017-02-25 13:51] LABS: BASOPHILS # (AUTO) 0.1 10^3/uL (0.0-0.1); BASOPHILS % (AUTO) 1 % (0-10); EOSINOPHILS # (AUTO) 0.2 10^3/uL (0.0-0.3); EOSINOPHILS % (AUTO) 3 % (0-10); HEMATOCRIT 35 % (35-52); HEMOGLOBIN 11.4 G/DL (11.5-16.0); LYMPHOCYTES # (AUTO) 1.6 X 10^3 (1.0-4.0); LYMPHOCYTES % (AUTO) 20 % (12-44); MEAN CORPUSCULAR HEMOGLOBIN 31 PG (25-34); MEAN CORPUSCULAR HGB CONC 33 G/DL (32-36); MEAN CORPUSCULAR VOLUME 94 FL (80-99); MEAN PLATELET VOLUME 10.6 FL (7.4-10.4); MONOCYTES # (AUTO) 0.8 X 10^3 (0.0-1.0); MONOCYTES % (AUTO) 10 % (0-12); NEUTROPHILS # (AUTO) 5.2 X 10^3 (1.8-7.8); NEUTROPHILS % (AUTO) 66 % (42-75); PLATELET COUNT 224 10^3/uL (130-400); RED CELL DISTRIBUTION WIDTH 16.1 % (10.0-14.5); WHITE BLOOD COUNT 7.9 10^3/uL (4.3-11.0)
[2017-02-25 14:08] LABS: BILIRUBIN,TOTAL 0.5 MG/DL (0.1-1.0); CALCIUM 9.6 MG/DL (8.5-10.1); CREATININE SERUM 1.04 MG/DL (0.60-1.30); MAGNESIUM 1.6 MG/DL (1.8-2.4); POTASSIUM 3.8 MMOL/L (3.6-5.0); TOTAL PROTEIN 7.5 GM/DL (6.4-8.2)
[2017-03-03] MEDS ORDERED: OMEP20CA12 PO (09:08)
== END 2017-03-03 | disposition home or self-care (01) ==
LOC: ONC 13:23
PROVIDERS: ATTEND Internal Medicine Hematology & Oncology
DX: C18.4 Malignant neoplasm of transverse colon (principal); C77.2 Secondary and unspecified malignant neoplasm of intra-abdominal lymph nodes; E03.9 Hypothyroidism, unspecified; R73.03 Prediabetes; E55.9 Vitamin D deficiency, unspecified; E53.8 Deficiency of other specified B group vitamins; Z79.899 Other long term (current) drug therapy
CPT/HCPCS: 36591; 80053; 82378; 83735; 85025